=== PATIENT | female | born 1985 | race Caucasian/White ===

== ENCOUNTER 2016-09-16 00:27 | Emergency (ER) | payer MEDICARE, MEDICAID ==
[2016-09-16 00:42] VITALS: BP 142/103
[2016-09-16] MEDS ORDERED: Famotidine 20 MG/2 ML SDV IVPUSH ONE (01:11)
[2016-09-16] MEDS ORDERED: Sodium Chloride 0.9% 10 ML Syringe FLUSH PRN (01:11)
[2016-09-16] MEDS ORDERED: Ondansetron 4 MG/2 ML SDV IVPUSH ONE (01:11)
[2016-09-16] MEDS ORDERED: HYDROmorphone 0.5 MG/0.5 ML Syringe IVPUSH ONE (01:11)
--- NOTE | 2016-09-16 02:21 | EDM.PDOC ---
ED HPI GENERAL MEDICAL PROBLEM - General Chief Complaint: Abdominal Pain Stated Complaint: ABDOMINAL PAIN Time Seen by Provider: 09/16/16 00:48 Source of Information: Reports: Patient, RN Notes Reviewed - History of Present Illness INITIAL COMMENTS - FREE TEXT/NARRATIVE: 31-year-old female comes in with lower abdominal discomfort. This just started a few hours ago. She also does have some nausea. She has not vomited. No diarrhea. No fever or chills. She does have history of previous appendectomy. No vaginal bleeding or spotting. She states that his "no way I. can be because I do not have a boyfriend" Lower Abdomen Pain Score (Numeric/FACES): 10 - Related Data Allergies Allergy/AdvReac Type Severity Reaction Status Date / Time codeine Allergy Cannot Verified 02/22/16 22:39 Remember leuprolide acetate Allergy Hives Verified 02/22/16 22:39 [From Lupron] Home Meds: Home Meds Levothyroxine [Synthroid] 50 mcg PO DAILY 10/16/14 [History] Meloxicam [Meloxicam] 15 mg PO DAILY 09/16/16 [History] Nitrofurantoin Monohyd/M-Cryst [Macrobid 100 mg Capsule] 100 mg PO BID #10 capsule 09/16/16 [Rx] atorvaSTATin [Lipitor] 10 mg PO DAILY 09/16/16 [History] Past Medical History HEENT History: Reports: Other (See Below) Other HEENT History: wears glasses, blind in left eye 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) Other OB/BYN History: pt doesn't menstrate so she takes prometrium to get rid of the waste in her uterus Musculoskeletal History: Reports: Back Pain, Chronic Neurological History: Reports: Other (See Below) Other Neuro History: neurofibrotosis type 1 Endocrine/Metabolic History: Reports: Hypothyroidism - Infectious Disease History Infectious Disease History: Reports: Chicken Pox - Past Surgical History HEENT Surgical History: Reports: Other (See Below) Other HEENT Surgeries/Procedures: aucoustic nerve radiation d/t tumor GI Surgical History: Reports: Appendectomy Endocrine Surgical History: Reports: None Other Neurological Surgeries/Procedures: NeuroFibroMytosis Type 1 Social & Family History - Family History Family Medical History: Noncontributory - Tobacco Use Smoking Status *Q: Never Smoker Second Hand Smoke Exposure: No - Caffeine Use Caffeine Use: Reports: Soda Other Caffeine Use: a few can a day - Alcohol Use Days Per Week of Alcohol Use: 0 - Recreational Drug Use Recreational Drug Use: No - Living Situation & Occupation Living situation: Reports: Single Occupation: Employed ED ROS GENERAL - Review of Systems Review Of Systems: See Below Constitutional: Denies: Fever, Chills HEENT: Denies: Throat Pain Respiratory: Denies: Shortness of Breath Cardiovascular: Denies: Chest Pain GI/Abdominal: Reports: Abdominal Pain (Lower abdominal and pelvic), Nausea. Denies: Vomiting : Reports: No Symptoms Musculoskeletal: Reports: Back Pain (Mild) Skin: Reports: No Symptoms Neurological: Reports: No Symptoms ED EXAM, GI/ABD - Physical Exam Exam: See Below General Appearance: Alert, No Apparent Distress, Mild Distress Throat/Mouth: Normal Inspection, Normal Oropharynx Head: Atraumatic Neck: Supple, Full Range of Motion Respiratory/Chest: No Respiratory Distress, Lungs Clear, Normal Breath Sounds Cardiovascular: Regular Rate, Rhythm GI/Abdominal: Soft, Tenderness (Very mild tenderness lower mid abdomen). No: Guarding, Rebound Back Exam: No: CVA Tenderness (L), CVA Tenderness (R) Extremities: Normal Inspection, Normal Range of Motion Neurological: Alert, No Motor/Sensory Deficits Skin Exam: Warm, Dry, Normal Color Course - Vital Signs Last Recorded V/S: Last Vital Signs Temp 97.8 F 09/16/16 00:38 Pulse 55 L 09/16/16 00:38 Resp 16 09/16/16 00:38 BP 142/103 H 09/16/16 00:38 Pulse Ox 100 09/16/16 00:38 - Orders/Labs/Meds Orders: Active Orders 24 hr Category Date Time Status Peripheral IV Care [RC] . DIRECTED Care 09/16/16 01:12 Active Sodium Chloride 0.9% [Normal Saline] 1,000 ml Med 09/16/16 02:30 Ordered IV ONETIME Sodium Chloride 0.9% [Saline Flush] Med 09/16/16 01:11 Active 10 ml FLUSH ASDIRECTED PRN Peripheral IV Insertion Adult [OM.PC] Stat Oth 09/16/16 01:11 Ordered Medication Orders Sodium Chloride (Normal Saline) 1,000 mls @ 999 mls/hr IV ONETIME YULI Sodium Chloride (Saline Flush) 10 ml FLUSH ASDIRECTED PRN PRN Reason: Keep Vein Open Last Admin: 09/16/16 01:33 Dose: 10 ml Labs: Laboratory Tests 09/16/16 09/16/16 09/16/16 Range/Units 01:20 01:35 01:35 WBC 9.60 (3.98-10.04) K/mm3 RBC 4.84 (3.98-5.22) M/mm3 Hgb 13.7 (11.2-15.7) gm/L Hct 38.4 (34.1-44.9) % MCV 79.3 L (79.4-94.8) fl MCH 28.3 (25.6-32.2) pg MCHC 35.7 H (32.2-35.5) g/dl RDW Std Deviation 36.1 L (36.4-46.3) fL Plt Count 337 (182-369) K/mm3 MPV 9.3 L (9.4-12.3) fl Neut % (Auto) 53.5 (34.0-71.1) % Lymph % (Auto) 35.2 (19.3-51.7) % [place] % (Auto) 7.9 (4.7-12.5) % Eos % (Auto) 2.1 (0.7-5.8) Baso % (Auto) 0.9 (0.1-1.2) % Neut # (Auto) 5.13 (1.56-6.13) K/mm3 Lymph # (Auto) 3.38 (1.18-3.74) K/mm3 [place] # (Auto) 0.76 H (0.24-0.36) K/mm3 Eos # (Auto) 0.20 (0.04-0.36) K/mm3 Baso # (Auto) 0.09 H (0.01-0.08) K/mm3 Manual Slide Review Normal smear Sodium 139 (136-145) mEq/L Potassium 3.5 (3.5-5.1) mEq/L Chloride 106 (98-107) mEq/L Carbon Dioxide 20 L (21-32) mEq/L Anion Gap 16.5 H (5-15) BUN 16 (7-18) mg/dL Creatinine 0.8 (0.55-1.02) mg/dL Est Cr Clr Drug Dosing 72.52 mL/min Estimated GFR (MDRD) > 60 (>60) mL/min BUN/Creatinine Ratio 20.0 H (14-18) Glucose 94 (74-106) mg/dL Calcium 9.3 (8.5-10.1) mg/dL Total Bilirubin 0.3 (0.2-1.0) mg/dL AST 12 L (15-37) U/L ALT 15 (14-59) U/L Alkaline Phosphatase 111 (46-116) U/L Total Protein 7.3 (6.4-8.2) g/dl Albumin 4.1 (3.4-5.0) g/dl Globulin 3.2 gm/dL Albumin/Globulin Ratio 1.3 (1-2) Urine Color Yellow (Yellow) Urine Appearance Clear (Clear) Urine pH 7.5 (5.0-8.0) Ur Specific [place] 1.020 (1.005-1.030) Urine Protein 1+ H (Negative) Urine Glucose (UA) Negative (Negative) Urine Ketones Negative (Negative) Urine Occult Blood Negative (Negative) Urine Nitrite Negative (Negative) Urine Bilirubin Negative (Negative) Urine Urobilinogen 1.0 (0.2-1.0) Ur Leukocyte Esterase 1+ H (Negative) Urine RBC Not seen (0-5) /hpf Urine WBC 5-10 H (0-5) /hpf Ur Epithelial Cells 0-5 (0-5) /hpf Urine Bacteria Few (FEW) /hpf Urine Mucus Few (FEW) /hpf Meds: Medications Generic Name Dose Route Start Last Admin Trade Name Freq PRN Reason Stop Dose Admin Sodium Chloride 1,000 mls @ 999 mls/hr 09/16/16 02:30 Normal Saline IV ONETIME YULI Sodium Chloride 10 ml 09/16/16 01:11 09/16/16 01:33 Saline Flush FLUSH 10 ml ASDIRECTED PRN Administration Keep Vein Open Discontinued Medications Generic Name Dose Route Start Last Admin Trade Name Freq PRN Reason Stop Dose Admin Famotidine 20 mg 09/16/16 01:11 09/16/16 01:31 Pepcid IVPUSH 09/16/16 01:12 20 mg ONETIME ONE Administration Hydromorphone HCl 0.5 mg 09/16/16 01:11 09/16/16 01:33 Dilaudid IVPUSH 09/16/16 01:12 0.5 mg ONETIME ONE Administration Nitrofurantoin Macrocrystals 100 mg 09/16/16 02:24 Macrobid PO 09/16/16 02:25 ONETIME ONE Ondansetron HCl 4 mg 09/16/16 01:11 09/16/16 01:30 Zofran IVPUSH 09/16/16 01:12 4 mg ONETIME ONE Administration - Re-Assessments/Exams Free Text/Narrative Re-Assessment/Exam: 09/16/16 02:28. UA does show signs for UTI. WBC normal. Feels much better after Zofran 4 mg IV, Pepcid 20 mg IV and Dilaudid 0.5 mg IV. Labs do show that she is somewhat dehydrated so we'll give 1 L of fluid prior to discharge. Will start on Macrobid 100 mg twice a day. Departure - Departure Time of Disposition: 15:30 Disposition: Home, Self-Care 01 Condition: fair Clinical Impression: Abdominal pain Qualifiers: Abdominal location: lower abdomen, unspecified Qualified Code(s): R10.30 - Lower abdominal pain, unspecified UTI (urinary tract infection) Qualifiers: Urinary tract infection type: acute cystitis Hematuria presence: without hematuria Qualified Code(s): N30.00 - Acute cystitis without hematuria - Discharge Information Prescriptions: Nitrofurantoin Monohyd/M-Cryst [Macrobid 100 mg Capsule] 100 mg PO BID #10 capsule Forms: ED Department Discharge Additional Instructions: Drink plenty of water, drink plenty of fluids to maintain hydration. Macrobid antibiotic twice daily for the next 5 days or until gone, followup clinic if not much better within one to 2 days as expected, return to ED if symptoms worsening in any way - My Orders Last 24 Hours: My Active Orders 09/16/16 01:11 Sodium Chloride 0.9% [Saline Flush] 10 ml FLUSH ASDIRECTED PRN Peripheral IV Insertion Adult [OM.PC] Stat 09/16/16 01:12 Peripheral IV Care [RC] . DIRECTED 09/16/16 02:30 Sodium Chloride 0.9% [Normal Saline] 1,000 ml IV ONETIME - Assessment/Plan Last 24 Hours: My Active Orders 09/16/16 01:11 Sodium Chloride 0.9% [Saline Flush] 10 ml FLUSH ASDIRECTED PRN Peripheral IV Insertion Adult [OM.PC] Stat 09/16/16 01:12 Peripheral IV Care [RC] . DIRECTED 09/16/16 02:30 Sodium Chloride 0.9% [Normal Saline] 1,000 ml IV ONETIME
[2016-09-16] MEDS ORDERED: Nitrofurantoin Monohydrate/Macrocrystalline 100 MG Cap PO ONE (02:24)
[2016-09-16] MEDS ORDERED: Sodium Chloride 0.9% 1,000 ML IV SCH (02:30)
== END 2016-09-16 04:00 | disposition home or self-care (01) ==
LOC: JD.ED 00:27
DX: N30.00 Acute cystitis without hematuria (principal); E03.9 Hypothyroidism, unspecified; Z90.49 Acquired absence of other specified parts of digestive tract; Z98.890 Other specified postprocedural states; Z79.899 Other long term (current) drug therapy; Z88.5 Allergy status to narcotic agent; Z88.8 Allergy status to other drugs, medicaments and biological substances
CPT/HCPCS: 36415; 80053; 81001; 85025; 96361; 96374; 96375; 99284; A9270; J1170; J2405; J7040; J7050

== ENCOUNTER 2016-10-05 21:37 | Emergency (ER) | payer MEDICARE, MEDICAID ==
[2016-10-05 21:53] VITALS: BP 129/79
--- NOTE | 2016-10-05 23:11 | EDM.PDOC ---
ED HPI GENERAL MEDICAL PROBLEM - General Chief Complaint: Lower Extremity Injury/Pain Stated Complaint: Lower extremity edema Time Seen by Provider: 10/05/16 22:05 Source of Information: Reports: Patient, RN Notes Reviewed History Limitations: Reports: No Limitations - History of Present Illness INITIAL COMMENTS - FREE TEXT/NARRATIVE: 31 year old female presents to the ED with lower extremity edema, worse on the right side. She says she normally has swelling after work but today is much worse than normal. The swelling is worse on the right side. She has calf pain on the right side that is worse with dorsiflexion of the foot. She works at [employer] and is on her feet for 4-6 hours at a time. 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 She denies chest pain or shortness of breath. No history of blood clots or clotting disorders. No recent travel. She is not on any control or hormonal replacement medications. No fever or chills. 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 (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) Other OB/BYN History: pt doesn't menstrate so she takes prometrium to get rid of the waste in her uterus Musculoskeletal History: Reports: Back Pain, Chronic Neurological History: Reports: Other (See Below) Other Neuro History: neurofibrotosis type 1 Endocrine/Metabolic History: Reports: Hypothyroidism - Infectious Disease History Infectious Disease History: Reports: Chicken Pox - Past Surgical History HEENT Surgical History: Reports: Other (See Below) Other 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 GI Surgical History: Reports: Appendectomy Endocrine Surgical History: Reports: None Other Neurological Surgeries/Procedures: NeuroFibroMytosis Type 1 Social & Family History - Family History Family Medical History: Noncontributory - Tobacco Use Smoking Status *Q: Never Smoker Second Hand Smoke Exposure: No - Caffeine Use Caffeine Use: Reports: Soda Other Caffeine Use: a few can a day - Alcohol Use Days Per Week of Alcohol Use: 0 - Recreational Drug Use Recreational Drug Use: No - Living Situation & Occupation Living situation: Reports: Single Occupation: Employed Review of Systems - Review of Systems Review Of Systems: See Below Constitutional: Reports: No Symptoms. Denies: Chills, Fever Respiratory: Reports: No Symptoms. Denies: Shortness of Breath, Pleuritic Chest Pain, Cough Cardiovascular: Reports: Edema. Denies: Chest Pain Musculoskeletal: Reports: Leg Pain Skin: Reports: No Symptoms. Denies: Erythema ED EXAM, GENERAL - Physical Exam Exam: See Below Exam Limited By: No Limitations General Appearance: Alert, WD/WN, No Apparent Distress Respiratory/Chest: No Respiratory Distress, Lungs Clear, Normal Breath Sounds Cardiovascular: Normal Peripheral Pulses, Regular Rate, Rhythm, Other (non- pitting edema to bilateral lower extremities. ) Peripheral Pulses: 2+: Posterior Tibial (L), Posterior Tibial (R), Dorsalis Pedis (L), Dorsalis Pedis (R) Extremities: Normal Inspection, Normal Range of Motion, Normal Capillary Refill , Juan Daniel's Sign (right ), Leg Pain. No: Joint Swelling, Increased Warmth, Pallor , Redness Neurological: Alert, Normal Cognition Skin Exam: Warm, Dry, Intact Course - Vital Signs Last Recorded V/S: Last Vital Signs Temp 97.5 F 10/05/16 21:43 Pulse 64 10/05/16 21:43 Resp 16 10/05/16 21:43 BP 129/79 10/05/16 21:43 Pulse Ox 99 10/05/16 21:43 - Orders/Labs/Meds Labs: Laboratory Tests 10/05/16 10/05/16 10/05/16 Range/Units 22:35 22:35 22:35 WBC 9.28 (3.98-10.04) K/mm3 RBC 4.82 (3.98-5.22) M/mm3 Hgb 13.5 (11.2-15.7) gm/L Hct 39.4 (34.1-44.9) % MCV 81.7 (79.4-94.8) fl MCH 28.0 (25.6-32.2) pg MCHC 34.3 (32.2-35.5) g/dl RDW Std Deviation 37.9 (36.4-46.3) fL Plt Count 323 (182-369) K/mm3 MPV 9.0 L (9.4-12.3) fl Neut % (Auto) 53.3 (34.0-71.1) % Lymph % (Auto) 35.1 (19.3-51.7) % [place] % (Auto) 8.3 (4.7-12.5) % Eos % (Auto) 2.0 (0.7-5.8) Baso % (Auto) 1.0 (0.1-1.2) % Neut # (Auto) 4.94 (1.56-6.13) K/mm3 Lymph # (Auto) 3.26 (1.18-3.74) K/mm3 [place] # (Auto) 0.77 H (0.24-0.36) K/mm3 Eos # (Auto) 0.19 (0.04-0.36) K/mm3 Baso # (Auto) 0.09 H (0.01-0.08) K/mm3 D-Dimer, Quantitative < 0.19 L (0.19-0.59) mg/L Sodium 140 (136-145) mEq/L Potassium 3.6 (3.5-5.1) mEq/L Chloride 105 (98-107) mEq/L Carbon Dioxide 24 (21-32) mEq/L Anion Gap 14.6 (5-15) BUN 14 (7-18) mg/dL Creatinine 0.8 (0.55-1.02) mg/dL Est Cr Clr Drug Dosing TNP Estimated GFR (MDRD) > 60 (>60) mL/min BUN/Creatinine Ratio 17.5 (14-18) Glucose 95 (74-106) mg/dL Calcium 8.8 (8.5-10.1) mg/dL Total Bilirubin 0.3 (0.2-1.0) mg/dL AST 26 (15-37) U/L ALT 45 (14-59) U/L Alkaline Phosphatase 132 H (46-116) U/L Total Protein 7.2 (6.4-8.2) g/dl Albumin 3.7 (3.4-5.0) g/dl Globulin 3.5 gm/dL Albumin/Globulin Ratio 1.1 (1-2) - Re-Assessments/Exams Free Text/Narrative Re-Assessment/Exam: CBC and CMP are normal. D-dimer is WNL ruling out blood clots. Patient will be discharged home. Instructed to f/u with her PCP. Departure - Departure Time of Disposition: 23:10 Disposition: Home, Self-Care 01 Condition: good Clinical Impression: Lower extremity edema - Discharge Information Instructions: Edema Referrals: Natalee Sweet NP [Primary Care Provider] - Forms: ED Department Discharge Additional Instructions: Rest and elevate your legs above your heart Drink plenty of water, 60-80 oz is recommended Follow-up with your primary care provider in 1-2 weeks for recheck
== END 2016-10-05 23:20 | disposition home or self-care (01) ==
LOC: JD.ED 21:37
DX: R60.0 Localized edema (principal); E03.9 Hypothyroidism, unspecified; Z90.49 Acquired absence of other specified parts of digestive tract; Z98.890 Other specified postprocedural states; Z79.899 Other long term (current) drug therapy; Z88.5 Allergy status to narcotic agent; Z88.8 Allergy status to other drugs, medicaments and biological substances
CPT/HCPCS: 36415; 80053; 85025; 85379; 99282; 99284

== ENCOUNTER 2016-12-07 19:01 | Emergency (ER) | payer MEDICARE, MEDICAID ==
[2016-12-07 19:08] VITALS: BP 125/73
[2016-12-07] MEDS ORDERED: Cyclobenzaprine 10 MG Tab PO ONE (19:22)
[2016-12-07] MEDS ORDERED: Acetaminophen 325 MG Tab PO ONE (19:22)
[2016-12-07] MEDS ORDERED: Ondansetron 4 MG Tab.DIS PO ONE (19:22)
--- NOTE | 2016-12-07 19:25 | EDM.PDOC ---
ED HPI GENERAL MEDICAL PROBLEM - General Chief Complaint: Back Pain or Injury Stated Complaint: [facility] Time Seen by Provider: 12/07/16 19:11 Source of Information: Reports: Patient History Limitations: Reports: No Limitations - History of Present Illness INITIAL COMMENTS - FREE TEXT/NARRATIVE: 31 y/o F with hx neurofibromatosis, chronic back pain/spasms, presents with back pain and nausea. She reports that she just returned home from visiting her dad in [place] and she is very very sad because she misses the dog that lives there. She hasn't been able to eat much this afternoon due to nausea, no vomiting, though she requests to eat during our conversation. Mild diffuse abd discomfort, dull. No diarrhea. Normal BM's no fever. She also has worsening low back pain. No injury or fall. Normally takes meloxicam for this, but hasn't taken any in a few days. Hasn't taken anything for the back pain. Pain is moderate. Difficulty walking this afternoon due to pain. Pain was ok this morning then suddenly got worse about an hour ago. No incontinence. No sensory changes. Called EMS for help. No fever/recent illness/cough/CP. Patient lives alone and usually walks without assistance. Back Pain Score (Numeric/FACES): 10 Abdominal Pain Score (Numeric/FACES): 10 - Related Data Allergies Allergy/AdvReac Type Severity Reaction Status Date / Time codeine Allergy Cannot Verified 10/05/16 21:53 Remember leuprolide acetate Allergy Hives Verified 10/05/16 21:53 [From Lupron] Home Meds: Home Meds Levothyroxine [Synthroid] 50 mcg PO DAILY 10/16/14 [History] Meloxicam [Meloxicam] 15 mg PO DAILY 09/16/16 [History] atorvaSTATin [Lipitor] 10 mg PO DAILY 09/16/16 [History] Past Medical History HEENT History: Reports: Impaired Vision, Other (See Below) Other HEENT History: blind in left eye 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) Other OB/BYN History: pt doesn't menstrate so she takes prometrium to get rid of the waste in her uterus Musculoskeletal History: Reports: Back Pain, Chronic Neurological History: Reports: Other (See Below) Other Neuro History: neurofibrotosis type 1 Endocrine/Metabolic History: Reports: Hypothyroidism - Infectious Disease History Infectious Disease History: Reports: Chicken Pox - Past Surgical History HEENT Surgical History: Reports: Other (See Below) Other 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 GI Surgical History: Reports: Appendectomy Endocrine Surgical History: Reports: None Other Neurological Surgeries/Procedures: NeuroFibroMytosis Type 1 Social & Family History - Family History Family Medical History: Noncontributory - Tobacco Use Smoking Status *Q: Never Smoker Second Hand Smoke Exposure: No - Caffeine Use Caffeine Use: Reports: Soda Other Caffeine Use: a few can a day - Alcohol Use Days Per Week of Alcohol Use: 0 - Recreational Drug Use Recreational Drug Use: No - Living Situation & Occupation Living situation: Reports: Single Occupation: Employed ED ROS GENERAL - Review of Systems Review Of Systems: See Below Constitutional: Denies: Fever HEENT: Reports: No Symptoms Respiratory: Denies: Shortness of Breath, Cough Cardiovascular: Denies: Chest Pain Endocrine: Reports: No Symptoms GI/Abdominal: Reports: Abdominal Pain, Nausea : Reports: No Symptoms Musculoskeletal: Reports: Back Pain Skin: Reports: No Symptoms Psychiatric: Reports: Anxiety ED EXAM,LOWER BACK PAIN/INJURY - Physical Exam Exam: See Below Exam Limited By: No Limitations General Appearance: Alert, WD/WN, No Apparent Distress Eye Exam: Bilateral Eye: Normal Inspection Ears: Normal External Exam Nose: Normal Inspection Throat/Mouth: Normal Inspection, Normal Voice, No Airway Compromise Head: Atraumatic, Normocephalic Neck: Normal Inspection, Supple, Non-Tender, Full Range of Motion Respiratory/Chest: No Respiratory Distress, Lungs Clear, Normal Breath Sounds Cardiovascular: Normal Peripheral Pulses, Regular Rate, Rhythm, No Murmur GI/Abdominal: Soft, Non-Tender, No Distention. No: Rebound Back Exam: Normal Inspection, Vertebral Tenderness (mid L spine, no step-offs/ deformities, mild L paraspinal TTP, skin normal, no fluctuance). No: CVA Tenderness (L), CVA Tenderness (R) Extremities: Other (mild bilat lower extremity edema, no calf TTP) Neurological: Alert, Normal Mood/Affect, Normal Plantar Flexion, No Motor/ Sensory Deficits, Oriented x 3 Psychiatric: Anxious Skin Exam: Warm, Intact, Normal Color, No Rash Course - Vital Signs Last Recorded V/S: Last Vital Signs Temp 37.0 C 12/07/16 19:03 Pulse 62 08/06/17 19:03 Resp 16 12/07/16 19:03 BP 125/73 12/07/16 19:03 Pulse Ox 100 12/07/16 19:03 - Orders/Labs/Meds Orders: Active Orders 24 hr Category Date Time Status Lumbar Spine 2 or 3V [CR] Stat Exams 12/07/16 19:21 Taken Meds: Medications Discontinued Medications Generic Name Dose Route Start Last Admin Trade Name Neymar PRN Reason Stop Dose Admin Acetaminophen 650 mg 12/07/16 19:22 12/07/16 19:37 Tylenol PO 12/07/16 19:23 650 mg NOW ONE Administration Cyclobenzaprine HCl 10 mg 12/07/16 19:22 12/07/16 19:37 Flexeril PO 12/07/16 19:23 10 mg ONETIME ONE Administration Ondansetron HCl 8 mg 12/07/16 19:22 12/07/16 19:37 Zofran Odt PO 12/07/16 19:23 8 mg ONETIME ONE Administration - Re-Assessments/Exams Free Text/Narrative Re-Assessment/Exam: 12/07/16 19:50 Abdominal exam benign, patient requesting to eat. She is very sad about leaving her dog friend in [place]. She appears quite comfortable - she cried when telling me about the dog then was consoled and was happily telling me stories and appeared to be fine. Her mental abilities are quite simple. She seems to be acutely lonely - she lives alone and just returned from visiting family. Flexeril and APAP ordered for her back pain. XR ordered due to hx neurofibromatosis. Will allow her to eat after zofran and reassess. 12/07/16 20:15 Lumbar x-rays show no bony abnormality. Patient is feeling much better and would like to eat and go home. Reassured patient, discussed return precautions. Departure - Departure Time of Disposition: 20:16 Disposition: Home, Self-Care 01 Clinical Impression: Nausea Back pain Qualifiers: Back pain location: low back pain Chronicity: acute Back pain laterality: midline Sciatica presence: without sciatica Qualified Code(s): M54.5 - Low back pain - Discharge Information Forms: ED Department Discharge Additional Instructions: 1. Take your usual medications for back pain 2. Follow up with your regular doctor this week for further care 3. Return to the Emergency Department if you have severe pain, difficulty walking, fever, or other concerning symptoms - My Orders Last 24 Hours: My Active Orders 12/07/16 19:21 Lumbar Spine 2 or 3V [CR] Stat - Assessment/Plan Last 24 Hours: My Active Orders 12/07/16 19:21 Lumbar Spine 2 or 3V [CR] Stat
--- NOTE | 2016-12-08 08:38 | CR ---
Lumbar spine: AP, lateral and coned-down lateral views centered to the lumbosacral junction were obtained. Comparison: Previous lumbar spine study of 10/29/13. Vertebral body heights and disc spaces are maintained. Minimal scoliosis is seen. Sacroiliac joints are within normal limits. Pedicles as well as visualized transverse and spinous processes are intact. No subluxation or fracture is seen. Impression: 1. Slight scoliosis. 2. No additional abnormality is identified on three-view lumbar spine study. No significant change is seen from prior exam. Diagnostic code #2
== END 2016-12-07 20:22 | disposition home or self-care (01) ==
LOC: JD.ED 19:01
DX: M54.5 Low back pain (principal); R11.0 Nausea; E03.9 Hypothyroidism, unspecified; Z88.5 Allergy status to narcotic agent; Z88.8 Allergy status to other drugs, medicaments and biological substances; Z79.899 Other long term (current) drug therapy; Z90.49 Acquired absence of other specified parts of digestive tract
CPT/HCPCS: 72100; 99284; A9270; 99283

== ENCOUNTER 2017-01-29 18:56 | Emergency (ER) | payer MEDICARE, MEDICAID ==
[2017-01-29 19:09] VITALS: BP 137/90
--- NOTE | 2017-01-29 19:17 | EDM.PDOC ---
ED HPI GENERAL MEDICAL PROBLEM - General Chief Complaint: Back Pain or Injury Stated Complaint: LOWER BACK PAIN Time Seen by Provider: 01/29/17 19:10 Source of Information: Reports: Patient History Limitations: Reports: No Limitations - History of Present Illness INITIAL COMMENTS - FREE TEXT/NARRATIVE: 31-year-old female arrives in the ED with acute onset of diffuse low back pain radiating to the posterior lateral thighs and SI joint areas. No true radicular pain. No problems with her for ability to void or defecate. History of recurrent low back pain. 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 No specific injuries have been identified. Previous x-rays revealed a mild scoliosis of the lumbar spine but no congenital abnormalities or spondylolisthesis listhesis. They were done in 2013. On examination she has facet joint spasm and pain L4-L5 bilaterally. Both SI joints were very painful to palpation superior aspect. Benign abdominal examination no evidence of urinary tract infection afebrile. Onset: Today Onset Date: 01/29/17 Onset Time: 05:30 Duration: Hour(s): Location: Reports: Back (Low back.) Quality: Reports: Ache, Pressure Severity: Severe (Current rates her pain as 10 out of 10.) Improves with: Reports: Rest Worsens with: Reports: Other (Standing), Movement (Pain nevus present at rest periods worse with movement no) Context: Reports: Other (No known injuries. 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 Therefore there is a lot of twisting and turning activities.). Denies: Activity, Exercise, Lifting, Sick Contact, Trauma Associated Symptoms: Reports: No Other Symptoms Treatments EXPORT MANAGER: Reports: Other (see below) (None.) bilateral lower back Pain Score (Numeric/FACES): 10 - Related Data Allergies Allergy/AdvReac Type Severity Reaction Status Date / Time acetaminophen Allergy Other Verified 01/29/17 19:10 [From Tylenol-Codeine] leuprolide acetate Allergy Hives Verified 01/29/17 19:10 [From Lupron] codeine AdvReac Other Verified 01/29/17 19:10 Home Meds: Home Meds Levothyroxine [Synthroid] 50 mcg PO DAILY 10/16/14 [History] Meloxicam [Meloxicam] 15 mg PO DAILY 09/16/16 [History] Diclofenac Sodium [Voltaren] 50 mg PO TIDMEALS #24 tab.ec 01/29/17 [Rx] predniSONE [Deltasone] 20 mg PO ASDIRECTED #15 tablet 01/29/17 [Rx] traMADol [Ultram] 50 mg PO Q6H #24 tablet 01/29/17 [Rx] traMADol [Ultram] 50 mg PO Q6H #4 tablet 01/29/17 [Rx] Past Medical History HEENT History: Reports: Impaired Vision, Other (See Below) Other HEENT History: blind in left eye 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: Reports: Other (See Below) Other OB/BYN History: pt doesn't menstrate so she takes prometrium to get rid of the waste in her uterus Musculoskeletal History: Reports: Back Pain, Chronic Neurological History: Reports: Other (See Below) Other Neuro History: neurofibrotosis type 1 Endocrine/Metabolic History: Reports: Hypothyroidism - Infectious Disease History Infectious Disease History: Reports: Chicken Pox - Past Surgical History HEENT Surgical History: Reports: Other (See Below) Other 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 GI Surgical History: Reports: Appendectomy Endocrine Surgical History: Reports: None Other Neurological Surgeries/Procedures: NeuroFibroMytosis Type 1 Social & Family History - Family History Family Medical History: Noncontributory - Tobacco Use Smoking Status *Q: Never Smoker Second Hand Smoke Exposure: No - Caffeine Use Caffeine Use: Reports: Soda Other Caffeine Use: a few can a day - Alcohol Use Days Per Week of Alcohol Use: 0 - Recreational Drug Use Recreational Drug Use: No - Living Situation & Occupation Living situation: Reports: Single Occupation: Employed ED ROS GENERAL - Review of Systems Review Of Systems: See Below Constitutional: Denies: Fever, Chills, Malaise, Weakness, Fatigue, Decreased Appetite, Weight Loss HEENT: Reports: No Symptoms Respiratory: Reports: No Symptoms Cardiovascular: Reports: No Symptoms Endocrine: Reports: No Symptoms GI/Abdominal: Reports: No Symptoms : Reports: No Symptoms Musculoskeletal: Reports: Back Pain Skin: Reports: No Symptoms (See history of present illness) Neurological: Reports: Difficulty Walking Psychiatric: Reports: No Symptoms (Walks stooped over due to low back pain) Hematologic/Lymphatic: Reports: No Symptoms Immunologic: Reports: No Symptoms ED EXAM,LOWER BACK PAIN/INJURY - Physical Exam Exam: See Below Exam Limited By: No Limitations General Appearance: Alert, WD/WN, Moderate Distress Respiratory/Chest: No Respiratory Distress, Lungs Clear, Normal Breath Sounds, No Accessory Muscle Use, Chest Non-Tender Cardiovascular: Normal Peripheral Pulses, Regular Rate, Rhythm, No Edema, No Gallop, No Murmur GI/Abdominal: Normal Bowel Sounds, Soft, Non-Tender, No Organomegaly, No Abnormal Bruit, No Mass, Pelvis Stable Back Exam: Decreased Range of Motion, Paraspinal Tenderness (Particularly over L4-L5 L4-5 S1 facet joints bilaterally.), Other (Both superior aspect of the SI joints are very painful to touch.). No: Full Range of Motion, CVA Tenderness (L ), CVA Tenderness (R) Extremities: Normal Inspection, Normal Range of Motion, Non-Tender, No Pedal Edema Neurological: Normal Mood/Affect, Normal Dorsiflexion, CN II-XII Intact, Oriented x 3. No: Normal Gait DTR - Lower Extremities: 1+: Ankle (R), Ankle (L), 2+: Knee (R), Knee (L) Psychiatric: Normal Affect, Anxious Skin Exam: Warm, Normal Color, No Rash Course - Vital Signs Last Recorded V/S: Last Vital Signs Temp 36.3 C 01/29/17 19:03 Pulse 78 01/29/17 19:03 Resp 18 01/29/17 19:03 BP 137/90 01/29/17 19:03 Pulse Ox 100 01/29/17 19:03 - Orders/Labs/Meds Labs: Laboratory Tests 01/29/17 Range/Units 19:10 Urine Color Light yellow (Yellow) Urine Appearance Clear (Clear) Urine pH 6.5 (5.0-8.0) Ur Specific [place] 1.010 (1.005-1.030) Urine Protein Negative (Negative) Urine Glucose (UA) Negative (Negative) Urine Ketones Negative (Negative) Urine Occult Blood Negative (Negative) Urine Nitrite Negative (Negative) Urine Bilirubin Negative (Negative) Urine Urobilinogen 0.2 (0.2-1.0) Ur Leukocyte Esterase 1+ H (Negative) Urine RBC 0-5 (0-5) /hpf Urine WBC 5-10 H (0-5) /hpf Ur Epithelial Cells 0-5 (0-5) /hpf Urine Bacteria Few (FEW) /hpf Urine Mucus Not seen (FEW) /hpf Meds: Medications Discontinued Medications Generic Name Dose Route Start Last Admin Trade Name Neymar PRN Reason Stop Dose Admin Ibuprofen 600 mg 01/29/17 19:23 01/29/17 19:49 Motrin PO 01/29/17 19:24 600 mg ONETIME ONE Administration Prednisone 20 mg 01/29/17 19:24 01/29/17 19:48 Prednisone PO 01/29/17 19:25 20 mg ONETIME ONE Administration Tramadol HCl Confirm 01/29/17 19:47 01/29/17 20:01 Ultram Administered 01/29/17 19:48 Not Given Dose 200 mg .ROUTE .STK-MED ONE - Radiology Interpretation Free Text/Narrative:: 31-year-old female presents the ED with acute onset of bilateral low back pain. No specific injuries occurred in the workplace a day. 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 Has a positive low back pain the past. Examination reveals bilateral L4 -L5 L5-S1 facet joint tenderness as well as superior aspect of SI joints bilaterally. No evidence of any urinary tract infection. Benign abdominal exam. I did review an x-ray that was done in 2013 on her back showing some scoliosis of the lumbar spine but no spondylosis listhesis or other abnormalities at that time. Plan patient has limited finances. She is unable to purchase medications other than through [facility]. She does only has 5 daughters and her debit card and is therefore is not able to use the Outline machine. Plan tramadol 50 mg every 6 hours 4 tablets were provided through the ED. Given Motrin 600 mg by mouth in the ED with prednisone 20 mg by mouth once. She'll start 20 mg prednisone twice a day for 5 days tomorrow and then once in the morning for another 5 days after that. She'll use Voltaren 50 mg 3 times daily for the next 8 days to reduce pain and inflammation. Tramadol 50 mg every 6 hours when necessary for pain relief. Note given to get her off out of the work place for the next 4 days. Departure - Departure Time of Disposition: 19:17 Disposition: Home, Self-Care 01 Condition: Fair Clinical Impression: Bilateral sacroiliitis Acute lumbar myofascial strain Qualifiers: Encounter type: initial encounter Qualified Code(s): S39.012A - Strain of muscle, fascia and tendon of lower back, initial encounter - Discharge Information Prescriptions: Diclofenac Sodium [Voltaren] 50 mg PO TIDMEALS #24 tab.ec predniSONE [Deltasone] 20 mg PO ASDIRECTED #15 tablet traMADol [Ultram] 50 mg PO Q6H #24 tablet traMADol [Ultram] 50 mg PO Q6H #4 tablet Instructions: Lumbosacral Strain Referrals: Natalee Sweet DRAFTER [employer] [Primary Care Provider] - Forms: ED Department Discharge, ED Return to Work/School Form Additional Instructions: Evaluation the emergency room today in regards to sudden onset of acute low bilateral low back pain. Heaviness in the legs appreciated. No problems voiding or defecating. Gait disorder due to back pain causing to stoop and walk very slow. No known injuries. Examination reveals marked inflammation over the L4-L5 facet joints bilaterally and appeared through particularly the upper half of the SI joints bilaterally.. We call the sacroiliitis. His usually refers pain into the hips and down the back sides of legs. As is usually repetitive twisting activity over the last few days. Treatment is therefore time to heal. May apply ice to the low back today for one half hour out of every 4 hours to relieve pain and inflammation. May use heat in 2 days time. Activity as tolerated. May use tramadol 50 mg every 6 hours for pain relief. Given a dose of Motrin 600 mg in the ED. The prescription for Voltaren tomorrow with Deltasone and tramadol. First dose of Deltasone was also given in the ED and Tramadol tablets to take home. Note given to excuse her from the workplace until next week Thursday. If still not able to return to work follow-up with personal care physician for further evaluation and management.
[2017-01-29] MEDS ORDERED: Ibuprofen 600 MG Tab PO ONE (19:23)
[2017-01-29] MEDS ORDERED: predniSONE 20 MG Tab PO ONE (19:24)
[2017-01-29] MEDS ORDERED: traMADol 50 MG Tab ONE (19:47)
== END 2017-01-29 19:55 | disposition home or self-care (01) ==
LOC: JD.ED 18:56
DX: S39.012A Strain of muscle, fascia and tendon of lower back, initial encounter (principal); M46.1 Sacroiliitis, not elsewhere classified; Z88.6 Allergy status to analgesic agent; Z88.5 Allergy status to narcotic agent; Z79.899 Other long term (current) drug therapy; X58.XXXA Exposure to other specified factors, initial encounter
CPT/HCPCS: 81001; 99283; A9270

== ENCOUNTER 2017-02-11 18:31 | Emergency (ER) | payer MEDICARE, MEDICAID ==
[2017-02-11 18:38] VITALS: BP 119/77
[2017-02-11] MEDS ORDERED: Benzonatate 100 MG Cap PO ONE (18:55)
--- NOTE | 2017-02-11 19:03 | EDM.PDOC ---
ED HPI GENERAL MEDICAL PROBLEM - General Chief Complaint: Respiratory Problem Stated Complaint: COUGH/CONGESTION Time Seen by Provider: 02/11/17 18:47 Source of Information: Reports: Patient History Limitations: Reports: No Limitations - History of Present Illness INITIAL COMMENTS - FREE TEXT/NARRATIVE: Patient is a 31-year-old female presents ED complaining of sinus congestion, postnasal drip, and nonproductive cough. Onset was 2 days ago has progressively gotten worse. There's been no documented fever. Does have mild sore throat with swallowing and also coughing. Has had poor sleep secondary to cough. Denies any recent sick exposures, body aches, ear pain, nausea vomiting, chest pain, shortness of breath, abdominal pain, or any additional complaints. Throat Pain Score (Numeric/FACES): 5 - Related Data Allergies Allergy/AdvReac Type Severity Reaction Status Date / Time acetaminophen Allergy Other Verified 02/11/17 18:38 [From Tylenol-Codeine] leuprolide acetate Allergy Hives Verified 02/11/17 18:38 [From Lupron] codeine AdvReac Other Verified 02/11/17 18:38 Home Meds: Home Meds Levothyroxine [Synthroid] 50 mcg PO DAILY 10/16/14 [History] Meloxicam [Meloxicam] 15 mg PO DAILY 09/16/16 [History] Diclofenac Sodium [Voltaren] 50 mg PO TIDMEALS #24 tab.ec 01/29/17 [Rx] predniSONE [Deltasone] 20 mg PO ASDIRECTED #15 tablet 01/29/17 [Rx] traMADol [Ultram] 50 mg PO Q6H #24 tablet 01/29/17 [Rx] traMADol [Ultram] 50 mg PO Q6H #4 tablet 01/29/17 [Rx] Past Medical History HEENT History: Reports: Impaired Vision, Other (See Below) Other HEENT History: blind in left eye Cardiovascular History: Reports: High Cholesterol Respiratory History: Reports: Bronchitis, Recurrent Genitourinary History: Reports: UTI, Recurrent 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 (See Below) Other OB/BYN History: pt doesn't menstrate so she takes prometrium to get rid of the waste in her uterus Musculoskeletal History: Reports: Back Pain, Chronic Neurological History: Reports: Other (See Below) Other Neuro History: neurofibrotosis type 1 Endocrine/Metabolic History: Reports: Hypothyroidism - Infectious Disease History Infectious Disease History: Reports: Chicken Pox - Past Surgical History HEENT Surgical History: Reports: Other (See Below) Other 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 Cardiovascular Surgical History: Reports: None Respiratory Surgical History: Reports: None GI Surgical History: Reports: Appendectomy Endocrine Surgical History: Reports: None Other Neurological Surgeries/Procedures: NeuroFibroMytosis Type 1 Social & Family History - Family History Family Medical History: Noncontributory - Tobacco Use Smoking Status *Q: Never Smoker Second Hand Smoke Exposure: No - Caffeine Use Caffeine Use: Reports: Soda Other Caffeine Use: a few can a day - Alcohol Use Days Per Week of Alcohol Use: 0 - Recreational Drug Use Recreational Drug Use: No - Living Situation & Occupation Living situation: Reports: Single Occupation: Employed ED ROS GENERAL - Review of Systems Review Of Systems: See Below Constitutional: Denies: Fever, Chills, Decreased Appetite HEENT: Reports: Rhinitis, Sinus Problem, Throat Pain. Denies: Ear Pain Respiratory: Reports: Cough. Denies: Shortness of Breath, Wheezing, Pleuritic Chest Pain, Sputum Cardiovascular: Denies: Chest Pain, Dyspnea on Exertion GI/Abdominal: Denies: Nausea, Vomiting Musculoskeletal: Denies: Neck Pain, Muscle Pain Neurological: Denies: Dizziness, Headache ED EXAM, GENERAL - Physical Exam Exam: See Below Exam Limited By: No Limitations General Appearance: Alert, WD/WN, No Apparent Distress Ears: Normal External Exam, Normal Canal, Hearing Grossly Normal, Normal TMs Nose: Nasal Swelling, Nasal Drainage, Clear Rhinorrhea Throat/Mouth: Normal Voice, No Airway Compromise, Other (mild erythema with post nasal gtt) Neck: Normal Inspection, Supple, Non-Tender. No: Lymphadenopathy (L), Lymphadenopathy (R) Respiratory/Chest: No Respiratory Distress, Lungs Clear, Normal Breath Sounds, Chest Non-Tender Cardiovascular: Normal Peripheral Pulses, Regular Rate, Rhythm Peripheral Pulses: 2+: Radial (R) Neurological: Alert, Oriented, CN II-XII Intact, No Motor/Sensory Deficits Psychiatric: Normal Affect, Normal Mood Skin Exam: Warm, Dry, Intact, Normal Color, No Rash Course - Vital Signs Last Recorded V/S: Last Vital Signs Temp 97.4 F 02/11/17 18:36 Pulse 87 02/11/17 18:36 Resp 19 02/11/17 18:36 BP 119/77 02/11/17 18:36 Pulse Ox 99 02/11/17 18:36 - Orders/Labs/Meds Meds: Medications Discontinued Medications Generic Name Dose Route Start Last Admin Trade Name Neymar PRN Reason Stop Dose Admin Benzonatate 200 mg 02/11/17 18:55 02/11/17 19:17 Tessalon Perles PO 02/11/17 18:56 200 mg ONETIME ONE Administration - Re-Assessments/Exams Free Text/Narrative Re-Assessment/Exam: Patient has a viral upper respiratory infection. No diagnostic testing is required. Symptomatically care is appropriate. For cough have ordered Tessalon Perles 200 mg administered here in the ED. Will discharge patient with a prescription for Tessalon Perles thru the [facility]. Departure - Departure Time of Disposition: 18:59 Disposition: Home, Self-Care 01 Condition: Good Clinical Impression: Viral upper respiratory tract infection with cough - Discharge Information Instructions: Upper Respiratory Infection, Adult, [id number] Referrals: Natalee Sweet, TIE CUTTER [Primary Care Provider] - Forms: ED Department Discharge Additional Instructions: As discussed this is a viral illness that will resolve on its own over the next week to 10 days. Treatment is symptomatic care including: Flonase 1-2 sprays each nare every a.m., nasal saline spray 1-2 sprays each nare as needed for nasal congestion, Tylenol and ibuprofen in alternating fashion as needed for pain. Push the fluids. Ensure adequate rest. Eat a balanced diet. Take Tessalon Perles one tab 3 times a day as needed for cough. Follow-up with PCP as needed in the next week if symptoms aren't drastically improving. Return to ED for any new or worsening symptoms. No antibiotics are required at this time.
== END 2017-02-11 19:20 | disposition home or self-care (01) ==
LOC: JD.ED 18:31
DX: J06.9 Acute upper respiratory infection, unspecified (principal); E03.9 Hypothyroidism, unspecified; Z88.5 Allergy status to narcotic agent; Z88.8 Allergy status to other drugs, medicaments and biological substances; Z87.440 Personal history of urinary (tract) infections
CPT/HCPCS: 99283; A9270

== ENCOUNTER 2017-05-09 21:35 | Emergency (ER) | payer MEDICARE, MEDICAID ==
[2017-05-09 21:50] VITALS: BP 103/77
[2017-05-09] MEDS ORDERED: Ketorolac 30 MG/ML SDV IM ONE (23:13)
--- NOTE | 2017-05-10 00:38 | EDM.PDOC ---
ED HPI GENERAL MEDICAL PROBLEM - General Chief Complaint: Upper Extremity Injury/Pain Stated Complaint: RIGHT WRIST PAIN Time Seen by Provider: 05/09/17 22:40 Source of Information: Reports: Patient History Limitations: Reports: No Limitations - History of Present Illness INITIAL COMMENTS - FREE TEXT/NARRATIVE: 31-year-old female presents for evaluation and treatment of right wrist pain with radiation into fingers 2, 3 and 4. Patient reports that she has had pain intermittently for the last 4-5 years. She reports over the last 2-3 weeks the pain has significantly worsened and over the last 1-1-1/2 hours she is unable to move her fingers due to the pain. She reports heaviness into her fingers and she is unable to use them. She reports that her wrist has been erythematous and swollen. Currently there is very minimal swelling and no erythema. She has been using pain medication but continues to have discomfort. She has previously seen a provider for this and was told it was information. Reports numbness and tingling into the hand. Patient is right-handed. No trauma to the right wrist and hand. Location: Reports: Upper Extremity, Right Right Wrist Pain Score (Numeric/FACES): 10 - Related Data Allergies Allergy/AdvReac Type Severity Reaction Status Date / Time acetaminophen Allergy Other Verified 05/09/17 21:49 [From Tylenol-Codeine] leuprolide acetate Allergy Hives Verified 05/09/17 21:49 [From Lupron] codeine AdvReac Other Verified 05/09/17 21:49 Home Meds: Home Meds Levothyroxine [Synthroid] 50 mcg PO DAILY 10/16/14 [History] Meloxicam [Meloxicam] 15 mg PO DAILY 09/16/16 [History] Diclofenac Sodium [Voltaren] 50 mg PO TIDMEALS #24 tab.ec 01/29/17 [Rx] Past Medical History HEENT History: Reports: Impaired Vision, Other (See Below) Other HEENT History: blind in left eye Cardiovascular History: Reports: High Cholesterol Respiratory History: Reports: Bronchitis, Recurrent Genitourinary History: Reports: UTI, Recurrent 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) Other OB/BYN History: pt doesn't menstrate so she takes prometrium to get rid of the waste in her uterus Musculoskeletal History: Reports: Back Pain, Chronic Neurological History: Reports: Other (See Below) Other Neuro History: neurofibrotosis type 1 Endocrine/Metabolic History: Reports: Hypothyroidism - Infectious Disease History Infectious Disease History: Reports: Chicken Pox - Past Surgical History HEENT Surgical History: Reports: Other (See Below) Other 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 Cardiovascular Surgical History: Reports: None Respiratory Surgical History: Reports: None GI Surgical History: Reports: Appendectomy Endocrine Surgical History: Reports: None Other Neurological Surgeries/Procedures: NeuroFibroMytosis Type 1 Social & Family History - Family History Family Medical History: Noncontributory - Tobacco Use Smoking Status *Q: Never Smoker Second Hand Smoke Exposure: No - Caffeine Use Caffeine Use: Reports: Soda Other Caffeine Use: a few can a day - Alcohol Use Days Per Week of Alcohol Use: 0 - Recreational Drug Use Recreational Drug Use: No - Living Situation & Occupation Living situation: Reports: Single Occupation: Employed Review of Systems - Review of Systems Review Of Systems: See Below Musculoskeletal: Reports: Hand Pain (right wrist and hand pain), Other ( swelling to the right wrist and hand) Skin: Reports: Erythema Neurological: Reports: Numbness, Tingling ED EXAM, GENERAL - Physical Exam Exam: See Below Exam Limited By: No Limitations General Appearance: Alert, WD/WN, No Apparent Distress Respiratory/Chest: No Respiratory Distress Cardiovascular: Normal Peripheral Pulses, Regular Rate, Rhythm Peripheral Pulses: 2+: Radial (L), Radial (R) Extremities: Normal Inspection, Normal Capillary Refill, Limited Range of Motion (due to pain), Other (tenderness to palpation to the right distal radius and ulna). No: Joint Swelling, Increased Warmth Neurological: Alert, Oriented, Normal Cognition Psychiatric: Normal Affect, Normal Mood Skin Exam: Warm, Dry, Normal Color. No: Erythema Course - Vital Signs Last Recorded V/S: Last Vital Signs Temp 36.3 C 05/09/17 21:44 Pulse 68 05/09/17 21:44 Resp 13 05/09/17 21:44 BP 103/77 05/09/17 21:44 Pulse Ox 99 05/09/17 21:44 - Orders/Labs/Meds Labs: Laboratory Tests 05/09/17 05/09/17 Range/Units 22:53 23:46 WBC 10.40 H (3.98-10.04) K/mm3 RBC 4.71 (3.98-5.22) M/mm3 Hgb 13.2 (11.2-15.7) gm/L Hct 38.2 (34.1-44.9) % MCV 81.1 (79.4-94.8) fl MCH 28.0 (25.6-32.2) pg MCHC 34.6 (32.2-35.5) g/dl RDW Std Deviation 36.6 (36.4-46.3) fL Plt Count 336 (182-369) K/mm3 MPV 9.0 L (9.4-12.3) fl Neut % (Auto) 55.3 (34.0-71.1) % Lymph % (Auto) 34.3 (19.3-51.7) % [place] % (Auto) 7.7 (4.7-12.5) % Eos % (Auto) 1.6 (0.7-5.8) Baso % (Auto) 0.8 (0.1-1.2) % Neut # (Auto) 5.75 (1.56-6.13) K/mm3 Lymph # (Auto) 3.57 (1.18-3.74) K/mm3 [place] # (Auto) 0.80 H (0.24-0.36) K/mm3 Eos # (Auto) 0.17 (0.04-0.36) K/mm3 Baso # (Auto) 0.08 (0.01-0.08) K/mm3 Sodium 137 (136-145) mEq/L Potassium 3.7 (3.5-5.1) mEq/L Chloride 107 (98-107) mEq/L Carbon Dioxide 20 L (21-32) mEq/L Anion Gap 13.7 (5-15) BUN 20 H (7-18) mg/dL Creatinine 0.6 (0.55-1.02) mg/dL Est Cr Clr Drug Dosing 96.69 mL/min Estimated GFR (MDRD) > 60 (>60) mL/min BUN/Creatinine Ratio 33.3 H (14-18) Glucose 103 (74-106) mg/dL Calcium 8.8 (8.5-10.1) mg/dL Total Bilirubin 0.2 (0.2-1.0) mg/dL AST 29 (15-37) U/L ALT 41 (14-59) U/L Alkaline Phosphatase 104 (46-116) U/L C-Reactive Protein < 0.2 (<1.0) mg/dL Total Protein 6.7 (6.4-8.2) g/dl Albumin 3.5 (3.4-5.0) g/dl Globulin 3.2 gm/dL Albumin/Globulin Ratio 1.1 (1-2) Meds: Medications Discontinued Medications Generic Name Dose Route Start Last Admin Trade Name Neymar PRN Reason Stop Dose Admin Ketorolac Tromethamine 30 mg 05/09/17 23:13 05/09/17 23:27 Toradol IM 05/09/17 23:14 30 mg ONETIME ONE Administration - Radiology Interpretation Free Text/Narrative:: xray of the right wrist shows no acute fractures or dislocations. - Re-Assessments/Exams Free Text/Narrative Re-Assessment/Exam: 05/10/17 00:39 I reviewed the labs and imaging with the patient. Her pain is improved with the Toradol. Patient reports that she knits quite a bit. I believe this is likely carpal tunnel causing her problems. We will get her in a wrist splint and have her follow-up with orthopedics. Recommended Aleve for pain relief. Discharge instructions as documented. Departure - Departure Time of Disposition: 00:40 Disposition: Home, Self-Care 01 Condition: Good Clinical Impression: Carpal tunnel syndrome of right wrist - Discharge Information Instructions: Carpal Tunnel Syndrome, [id number] Referrals: Natalee Sweet ZOOGLER [Primary Care Provider] - Bird Adames MD [Physician] - Forms: ED Department Discharge Additional Instructions: [id number] Aleve for pain relief. wear the splint Recommend using ice to the wrist. Follow-up with orthopedics. Recommend Dr. Adames. Call [phone] to schedule with him. Please return to the ER if your symptoms change or worsen.
--- NOTE | 2017-05-10 12:53 | CR ---
Right wrist: Four views of the right wrist were obtained. Comparison: Previous right wrist exam of 03/26/09. Joint spaces are maintained. No fracture, dislocation or other bony abnormality is seen. Impression: 1. No abnormality is identified on right wrist exam. Diagnostic code #1
== END 2017-05-10 00:50 | disposition home or self-care (01) ==
LOC: JD.ED 21:35
DX: G56.01 Carpal tunnel syndrome, right upper limb (principal); E78.00 Pure hypercholesterolemia, unspecified; Z88.6 Allergy status to analgesic agent; Z88.5 Allergy status to narcotic agent; Z79.899 Other long term (current) drug therapy
CPT/HCPCS: 36415; 73110; 80053; 85025; 86140; 96372; 99284; J1885; 99283

== ENCOUNTER 2017-06-10 21:03 | Emergency (ER) | payer MEDICARE, MEDICAID ==
[2017-06-10 21:07] VITALS: BP 107/69
--- NOTE | 2017-06-10 21:09 | EDM.PDOC ---
ED HPI GENERAL MEDICAL PROBLEM - General Chief Complaint: Upper Extremity Injury/Pain Stated Complaint: [facility] Time Seen by Provider: 06/10/17 21:10 Source of Information: Reports: Patient - History of Present Illness INITIAL COMMENTS - FREE TEXT/NARRATIVE: Patient is here for evaluation of hands swelling to right wrist. She states that it does feel better during the day, gets worse at night. She noticed some numbness and tingling to right hand as well. Patient has had no injury to this hand. Patient does wear wrist length at night. Patient is not currently employed. She spends most of her day either knitting or playing Wii. She does like to squeeze her stress ball a lot as well. Right Hand Pain Score (Numeric/FACES): 10 - Related Data Allergies Allergy/AdvReac Type Severity Reaction Status Date / Time acetaminophen Allergy Other Verified 06/10/17 21:08 [From Tylenol-Codeine] leuprolide acetate Allergy Hives Verified 06/10/17 21:08 [From Lupron] codeine AdvReac Other Verified 06/10/17 21:08 Home Meds: Home Meds Levothyroxine [Synthroid] 50 mcg PO DAILY 10/16/14 [History] Meloxicam [Meloxicam] 15 mg PO DAILY 09/16/16 [History] Cyclobenzaprine [Flexeril] 10 mg PO BEDTIME 06/10/17 [History] Past Medical History HEENT History: Reports: Impaired Vision, Other (See Below) Other HEENT History: blind in left eye Cardiovascular History: Reports: High Cholesterol Respiratory History: Reports: Bronchitis, Recurrent Genitourinary History: Reports: UTI, Recurrent 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 (See Below) Other OB/BYN History: pt doesn't menstrate so she takes prometrium to get rid of the waste in her uterus Musculoskeletal History: Reports: Back Pain, Chronic Neurological History: Reports: Other (See Below) Other Neuro History: neurofibrotosis type 1 Endocrine/Metabolic History: Reports: Hypothyroidism - Infectious Disease History Infectious Disease History: Reports: Chicken Pox - Past Surgical History HEENT Surgical History: Reports: Other (See Below) Other 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 Cardiovascular Surgical History: Reports: None Respiratory Surgical History: Reports: None GI Surgical History: Reports: Appendectomy Endocrine Surgical History: Reports: None Other Neurological Surgeries/Procedures: NeuroFibroMytosis Type 1 Social & Family History - Family History Family Medical History: Noncontributory - Tobacco Use Smoking Status *Q: Never Smoker Second Hand Smoke Exposure: No - Caffeine Use Caffeine Use: Reports: Soda Other Caffeine Use: a few can a day - Alcohol Use Days Per Week of Alcohol Use: 0 - Recreational Drug Use Recreational Drug Use: No - Living Situation & Occupation Living situation: Reports: Single Occupation: Employed Review of Systems - Review of Systems Review Of Systems: See Below Constitutional: Reports: No Symptoms Respiratory: Reports: No Symptoms Cardiovascular: Reports: No Symptoms Musculoskeletal: Reports: Other Skin: Reports: No Symptoms Neurological: Reports: Numbness, Tingling ED EXAM, GENERAL - Physical Exam Exam: See Below Exam Limited By: No Limitations General Appearance: Alert, WD/WN, Anxious Respiratory/Chest: No Respiratory Distress, Lungs Clear, Normal Breath Sounds Cardiovascular: Regular Rate, Rhythm, No Murmur Peripheral Pulses: 2+: Radial (L), Radial (R) Extremities: Normal Inspection, Normal Range of Motion, Other (Right wrist without swelling, ecchymosis or deformity. Mild tenderness to right wrist. Full range of motion with "stiffness" but no pain. Positive Phalen's on the right.) Neurological: Alert, Oriented, No Motor/Sensory Deficits Psychiatric: Anxious Skin Exam: Warm, Dry, Intact Course - Vital Signs Last Recorded V/S: Last Vital Signs Temp 97.8 F 06/10/17 21:04 Pulse 77 06/10/17 21:04 Resp 17 06/10/17 21:04 BP 107/69 06/10/17 21:04 Pulse Ox 99 06/10/17 21:04 - Orders/Labs/Meds Meds: Medications Discontinued Medications Generic Name Dose Route Start Last Admin Trade Name Freq PRN Reason Stop Dose Admin Tramadol HCl 50 mg 06/10/17 21:37 Ultram PO 06/10/17 21:38 ONETIME ONE - Re-Assessments/Exams Free Text/Narrative Re-Assessment/Exam: Patient had normal x-ray of her right wrist approximately one month ago and this demonstrated no abnormality. She has had no injury to her right wrist. Patient's description of her symptoms as well as her significant repetitive motions throughout the day (which include knitting, playing Wii or squeezing her stress ball) certainly fit the diagnosis of carpal tunnel syndrome. Patient will continue with her meloxicam, continue use Tylenol as needed. She' ll wear her wrist splint at night, she may wear this during the day needed. I did advise patient to try and avoid some of those repetitive motions during the day. Patient will follow up with PCP as scheduled, I did give her contact information to also schedule consult with orthopedics for further evaluation and treatment. She was certainly return to the emergency room if any worsening or severe symptoms. 06/10/17 21:39 Departure - Departure Time of Disposition: 21:34 Disposition: Home, Self-Care 01 Condition: Good Clinical Impression: Carpal tunnel syndrome of right wrist - Discharge Information Referrals: PCP,None [Primary Care Provider] - Forms: ED Department Discharge Additional Instructions: Continue to take your meloxicam every day. You may take Tylenol as needed. Where your wrist splint every single night, you can wear this during the day if you're having more pain. You may use ice or heat whichever you feel makes it better. You need to follow up with an orthopedic doctor to discuss further treatment options, the doctors are -Dr Cody [phone] -Dr Heredia [phone] -Dr Adames [phone]
[2017-06-10] MEDS ORDERED: traMADol 50 MG Tab PO ONE (21:37)
== END 2017-06-10 21:54 | disposition home or self-care (01) ==
LOC: JD.ED 21:03
DX: G56.01 Carpal tunnel syndrome, right upper limb (principal); E78.00 Pure hypercholesterolemia, unspecified; E03.9 Hypothyroidism, unspecified; Z88.5 Allergy status to narcotic agent; Z88.8 Allergy status to other drugs, medicaments and biological substances; Z79.899 Other long term (current) drug therapy
CPT/HCPCS: 99284; A9270; 99283

== ENCOUNTER 2017-06-29 16:27 | Emergency (ER) | payer MEDICARE, MEDICAID ==
[2017-06-29 16:38] VITALS: BP 128/81
[2017-06-29] MEDS ORDERED: Sodium Chloride 0.9% 1,000 ML IV ONE (17:27)
[2017-06-29] MEDS ORDERED: Ondansetron 4 MG/2 ML SDV IVPUSH ONE (17:27)
[2017-06-29] MEDS ORDERED: Sodium Chloride 0.9% 10 ML Syringe FLUSH PRN (17:27)
--- NOTE | 2017-06-29 17:38 | EDM.PDOC ---
ED HPI GENERAL MEDICAL PROBLEM - General Chief Complaint: Abdominal Pain Stated Complaint: SOB,CRAMPS,DIARRHEA,NAUSEA Time Seen by Provider: 06/29/17 17:12 Source of Information: Reports: Patient History Limitations: Reports: No Limitations - History of Present Illness INITIAL COMMENTS - FREE TEXT/NARRATIVE: Patient is a 31-year-old female who presents to the ED complaining of lower abdominal pain described as a sharp/crampy type pain that waxes and wanes in intensity. She's been mildly nauseated with no emesis. She's had multiple bowel movements today. Described as being hard. She has issues with constipation. Just prior to admission to the ED she had some small hard stool present. States she has a headache and feels dizzy. Complains of mild sinus congestion and runny nose. States she has other family members that are sick with upper respiratory symptoms as well. She did not receive the flu vaccination. Past medical history includes restless leg syndrome and hypothyroidism. Current medications include Synthroid and also meloxicam. Surgical history appendectomy. Patient is nonsmoker utilize alcohol or recreational drugs. Abdomen Pain Score (Numeric/FACES): 8 - Related Data Allergies Allergy/AdvReac Type Severity Reaction Status Date / Time acetaminophen Allergy Other Verified 06/29/17 16:38 [From Tylenol-Codeine] leuprolide acetate Allergy Hives Verified 06/29/17 16:38 [From Lupron] codeine AdvReac Other Verified 06/29/17 16:38 Home Meds: Home Meds Levothyroxine [Synthroid] 50 mcg PO DAILY 10/16/14 [History] Meloxicam [Meloxicam] 15 mg PO DAILY 09/16/16 [History] Cyclobenzaprine [Flexeril] 10 mg PO BEDTIME 06/10/17 [History] Nitrofurantoin Monohyd/M-Cryst [Macrobid 100 mg Capsule] 100 mg PO BID #10 capsule 06/29/17 [Rx] Past Medical History HEENT History: Reports: Impaired Vision, Other (See Below) Other HEENT History: blind in left eye Cardiovascular History: Reports: High Cholesterol Respiratory History: Reports: Bronchitis, Recurrent Genitourinary History: Reports: UTI, Recurrent 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 (See Below) Other OB/BYN History: pt doesn't menstrate so she takes prometrium to get rid of the waste in her uterus Musculoskeletal History: Reports: Back Pain, Chronic Neurological History: Reports: Other (See Below) Other Neuro History: neurofibrotosis type 1 Endocrine/Metabolic History: Reports: Hypothyroidism - Infectious Disease History Infectious Disease History: Reports: Chicken Pox - Past Surgical History HEENT Surgical History: Reports: Other (See Below) Other 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 Cardiovascular Surgical History: Reports: None Respiratory Surgical History: Reports: None GI Surgical History: Reports: Appendectomy Endocrine Surgical History: Reports: None Other Neurological Surgeries/Procedures: NeuroFibroMytosis Type 1 Social & Family History - Family History Family Medical History: Noncontributory - Tobacco Use Smoking Status *Q: Never Smoker Second Hand Smoke Exposure: No - Caffeine Use Caffeine Use: Reports: Soda Other Caffeine Use: a few can a day - Alcohol Use Days Per Week of Alcohol Use: 0 - Recreational Drug Use Recreational Drug Use: No - Living Situation & Occupation Living situation: Reports: Single Occupation: Employed ED ROS GENERAL - Review of Systems Review Of Systems: See Below Constitutional: Reports: Chills, Malaise, Decreased Appetite. Denies: Fever HEENT: Reports: Rhinitis, Sinus Problem. Denies: Ear Pain, Throat Pain Respiratory: Reports: No Symptoms Cardiovascular: Reports: No Symptoms GI/Abdominal: Reports: Abdominal Pain (lower), Constipation, Decreased Appetite , Nausea. Denies: Black Stool, Diarrhea, Distension, Flatus, Hematemesis, Vomiting : Reports: No Symptoms Musculoskeletal: Reports: Muscle Pain (low back) Neurological: Reports: Dizziness, Headache ED EXAM, GI/ABD - Physical Exam Exam: See Below Exam Limited By: No Limitations General Appearance: Alert, WD/WN, No Apparent Distress Ears: Hearing Grossly Normal Nose: Normal Inspection Throat/Mouth: Normal Inspection, Normal Oropharynx, Normal Voice, No Airway Compromise Head: Atraumatic, Normocephalic Neck: Normal Inspection, Supple, Non-Tender, Full Range of Motion Respiratory/Chest: No Respiratory Distress, Lungs Clear, Normal Breath Sounds, No Accessory Muscle Use, Chest Non-Tender Cardiovascular: Normal Peripheral Pulses, Regular Rate, Rhythm GI/Abdominal Exam: Normal Bowel Sounds, Soft, No Organomegaly, No Distention, Tender (suprapubic region) Back Exam: Normal Inspection. No: CVA Tenderness (L), CVA Tenderness (R) Neurological: Alert, Oriented, CN II-XII Intact, Normal Cognition, No Motor/ Sensory Deficits Psychiatric: Normal Affect, Normal Mood Skin Exam: Warm, Dry, Intact, Normal Color, No Rash Course - Vital Signs Last Recorded V/S: Last Vital Signs Temp 98.2 F 06/29/17 16:33 Pulse 81 06/29/17 16:33 Resp 13 06/29/17 16:33 BP 128/81 06/29/17 16:33 Pulse Ox 100 06/29/17 16:33 Orthostatic Blood Pressure [ 109/72 Standing] Orthostatic Blood Pressure [ 115/72 Sitting] Orthostatic Blood Pressure [ 121/71 Supine] - Orders/Labs/Meds Orders: Active Orders 24 hr Category Date Time Status Orthostatic Vital Signs [RC] ASDIRECTED Care 06/29/17 17:36 Active Peripheral IV Care [RC] . DIRECTED Care 06/29/17 17:27 Active Abdomen 2V AP Flat Upright [CR] Stat Exams 06/29/17 17:26 Taken Peripheral IV Insertion Adult [OM.PC] Routine Oth 06/29/17 17:27 Ordered Labs: Laboratory Tests 06/29/17 06/29/17 06/29/17 Range/Units 16:45 16:45 16:45 WBC 8.20 (3.98-10.04) K/mm3 RBC 4.93 (3.98-5.22) M/mm3 Hgb 13.6 (11.2-15.7) gm/L Hct 39.7 (34.1-44.9) % MCV 80.5 (79.4-94.8) fl MCH 27.6 (25.6-32.2) pg MCHC 34.3 (32.2-35.5) g/dl RDW Std Deviation 35.5 L (36.4-46.3) fL Plt Count 348 (182-369) K/mm3 MPV 9.1 L (9.4-12.3) fl Neut % (Auto) 55.8 (34.0-71.1) % Lymph % (Auto) 31.5 (19.3-51.7) % [place] % (Auto) 8.0 (4.7-12.5) % Eos % (Auto) 3.3 (0.7-5.8) Baso % (Auto) 0.9 (0.1-1.2) % Neut # (Auto) 4.58 (1.56-6.13) K/mm3 Lymph # (Auto) 2.58 (1.18-3.74) K/mm3 [place] # (Auto) 0.66 H (0.24-0.36) K/mm3 Eos # (Auto) 0.27 (0.04-0.36) K/mm3 Baso # (Auto) 0.07 (0.01-0.08) K/mm3 Sodium 134 L (136-145) mEq/L Potassium 3.8 (3.5-5.1) mEq/L Chloride 103 (98-107) mEq/L Carbon Dioxide 20 L (21-32) mEq/L Anion Gap 14.8 (5-15) BUN 24 H (7-18) mg/dL Creatinine 0.8 (0.55-1.02) mg/dL Est Cr Clr Drug Dosing 72.52 mL/min Estimated GFR (MDRD) > 60 (>60) mL/min BUN/Creatinine Ratio 30.0 H (14-18) Glucose 120 H (74-106) mg/dL Calcium 8.8 (8.5-10.1) mg/dL Total Bilirubin 0.2 (0.2-1.0) mg/dL AST 23 (15-37) U/L ALT 28 (14-59) U/L Alkaline Phosphatase 115 (46-116) U/L C-Reactive Protein < 0.2 (<1.0) mg/dL Total Protein 6.9 (6.4-8.2) g/dl Albumin 3.5 (3.4-5.0) g/dl Globulin 3.4 gm/dL Albumin/Globulin Ratio 1.0 (1-2) TSH 3rd Generation (0.358-3.74) uIU/mL HCG, Qual Negative (NEGATIVE) Urine Color (Yellow) Urine Appearance (Clear) Urine pH (5.0-8.0) Ur Specific [place] (1.005-1.030) Urine Protein (Negative) Urine Glucose (UA) (Negative) Urine Ketones (Negative) Urine Occult Blood (Negative) Urine Nitrite (Negative) Urine Bilirubin (Negative) Urine Urobilinogen (0.2-1.0) Ur Leukocyte Esterase (Negative) Urine RBC (0-5) /hpf Urine WBC (0-5) /hpf Ur Epithelial Cells (0-5) /hpf Urine Bacteria (FEW) /hpf Urine Mucus (FEW) /hpf 06/29/17 06/29/17 Range/Units 16:45 17:45 WBC (3.98-10.04) K/mm3 RBC (3.98-5.22) M/mm3 Hgb (11.2-15.7) gm/L Hct (34.1-44.9) % MCV (79.4-94.8) fl MCH (25.6-32.2) pg MCHC (32.2-35.5) g/dl RDW Std Deviation (36.4-46.3) fL Plt Count (182-369) K/mm3 MPV (9.4-12.3) fl Neut % (Auto) (34.0-71.1) % Lymph % (Auto) (19.3-51.7) % [place] % (Auto) (4.7-12.5) % Eos % (Auto) (0.7-5.8) Baso % (Auto) (0.1-1.2) % Neut # (Auto) (1.56-6.13) K/mm3 Lymph # (Auto) (1.18-3.74) K/mm3 [place] # (Auto) (0.24-0.36) K/mm3 Eos # (Auto) (0.04-0.36) K/mm3 Baso # (Auto) (0.01-0.08) K/mm3 Sodium (136-145) mEq/L Potassium (3.5-5.1) mEq/L Chloride (98-107) mEq/L Carbon Dioxide (21-32) mEq/L Anion Gap (5-15) BUN (7-18) mg/dL Creatinine (0.55-1.02) mg/dL Est Cr Clr Drug Dosing mL/min Estimated GFR (MDRD) (>60) mL/min BUN/Creatinine Ratio (14-18) Glucose (74-106) mg/dL Calcium (8.5-10.1) mg/dL Total Bilirubin (0.2-1.0) mg/dL AST (15-37) U/L ALT (14-59) U/L Alkaline Phosphatase (46-116) U/L C-Reactive Protein (<1.0) mg/dL Total Protein (6.4-8.2) g/dl Albumin (3.4-5.0) g/dl Globulin gm/dL Albumin/Globulin Ratio (1-2) TSH 3rd Generation 0.882 (0.358-3.74) uIU/mL HCG, Qual (NEGATIVE) Urine Color Yellow (Yellow) Urine Appearance Clear (Clear) Urine pH 6.0 (5.0-8.0) Ur Specific [place] 1.015 (1.005-1.030) Urine Protein Negative (Negative) Urine Glucose (UA) Negative (Negative) Urine Ketones Negative (Negative) Urine Occult Blood Trace-lysed H (Negative) Urine Nitrite Negative (Negative) Urine Bilirubin Negative (Negative) Urine Urobilinogen 0.2 (0.2-1.0) Ur Leukocyte Esterase 1+ H (Negative) Urine RBC 0-5 (0-5) /hpf Urine WBC 5-10 H (0-5) /hpf Ur Epithelial Cells 0-5 (0-5) /hpf Urine Bacteria Few (FEW) /hpf Urine Mucus Few (FEW) /hpf Meds: Medications Discontinued Medications Generic Name Dose Route Start Last Admin Trade Name Freq PRN Reason Stop Dose Admin Sodium Chloride 1,000 mls @ 999 mls/hr 06/29/17 17:27 06/29/17 17:44 Normal Saline IV 06/29/17 18:27 999 mls/hr ONETIME ONE Administration Nitrofurantoin Macrocrystals 100 mg 06/29/17 18:28 06/29/17 18:54 Macrobid PO 06/29/17 18:29 100 mg ONETIME ONE Administration Ondansetron HCl 4 mg 06/29/17 17:27 06/29/17 17:44 Zofran IVPUSH 06/29/17 17:28 4 mg ONETIME ONE Administration Sodium Chloride 10 ml 06/29/17 17:27 06/29/17 17:44 Saline Flush FLUSH 10 ml ASDIRECTED PRN Administration Keep Vein Open - Re-Assessments/Exams Free Text/Narrative Re-Assessment/Exam: IV established with normal saline 999 MLS per hour, and Zofran 4 mg IVP. Initial labs and studies will include CBC, chem 14, hCG, UA, CRP, and 2 view of the abdomen flat and upright. UA: occult blood trace, leukocyte esterace 1+, and WBC 5-10. CBC was essentially normal. Chemistry panel revealed sodium 134, potassium 3.8, AG 13.8, albumin 24, creatinine 0.8, glucose 120, CRP less than 0.2, TSH 0.82, hCG negative. Abdomen x-ray reviewed: No acute findings noted. Patient has a UTI. Ordered Macrobid 100mg PO. No urine culture will be obtained. Patient does not have a history of recurrent UTIs and is not sexually active. Departure - Departure Time of Disposition: 18:34 Disposition: Home, Self-Care 01 Condition: Good Clinical Impression: UTI (urinary tract infection) Qualifiers: Urinary tract infection type: acute cystitis Hematuria presence: without hematuria Qualified Code(s): N30.00 - Acute cystitis without hematuria - Discharge Information Prescriptions: Nitrofurantoin Monohyd/M-Cryst [Macrobid 100 mg Capsule] 100 mg PO BID #10 capsule Instructions: Urinary Tract Infection, Adult, [id number] Referrals: Natalee Sweet MANAGEMENT CONSULTANT [Primary Care Provider] - Forms: ED Department Discharge Additional Instructions: You have a UTI. Take Macrobid 100 mg twice a day for the next 5 days. Push the fluids. May utilize Tylenol and ibuprofen in alternating fashion for pain. Follow-up with your primary care provider in one week for reevaluation to ensure resolution of symptoms. Return to the ED if you develop any new or worsening symptoms. - My Orders Last 24 Hours: My Active Orders 06/29/17 17:26 Abdomen 2V AP Flat Upright [CR] Stat 06/29/17 17:27 Peripheral IV Care [RC] . DIRECTED Peripheral IV Insertion Adult [OM.PC] Routine 06/29/17 17:36 Orthostatic Vital Signs [RC] ASDIRECTED - Assessment/Plan Last 24 Hours: My Active Orders 06/29/17 17:26 Abdomen 2V AP Flat Upright [CR] Stat 06/29/17 17:27 Peripheral IV Care [RC] . DIRECTED Peripheral IV Insertion Adult [OM.PC] Routine 06/29/17 17:36 Orthostatic Vital Signs [RC] ASDIRECTED
[2017-06-29] MEDS ORDERED: Nitrofurantoin Monohydrate/Macrocrystalline 100 MG Cap PO ONE (18:28)
--- NOTE | 2017-06-30 07:05 | CR ---
Abdomen: Supine and upright views of the abdomen were obtained. Comparison: No prior abdominal x-ray, previous abdominal and pelvic CT exam of 05/15/16. Bowel gas pattern appears normal. Mild scoliosis is seen. No abnormal calcifications or soft tissue abnormality is seen. No free air is seen. Impression: 1. Mild scoliosis. Two-view abdominal x-ray is otherwise unremarkable. Diagnostic code #2
== END 2017-06-29 18:55 | disposition home or self-care (01) ==
LOC: JD.ED 16:27
DX: N30.00 Acute cystitis without hematuria (principal); E78.00 Pure hypercholesterolemia, unspecified; E03.9 Hypothyroidism, unspecified; Z90.49 Acquired absence of other specified parts of digestive tract; Z79.899 Other long term (current) drug therapy; Z88.5 Allergy status to narcotic agent; Z88.6 Allergy status to analgesic agent; Z88.8 Allergy status to other drugs, medicaments and biological substances
CPT/HCPCS: 36415; 74019; 80053; 81001; 84443; 84703; 85025; 86140; 96361; 96374; 99284; A9270; J2405; J7040; J7050

== ENCOUNTER 2017-11-12 22:45 | Emergency (ER) | payer MEDICARE, MEDICAID ==
[2017-11-12 22:56] VITALS: BP 128/114
--- NOTE | 2017-11-13 02:05 | EDM.PDOC ---
ED HPI GENERAL MEDICAL PROBLEM - General Chief Complaint: Respiratory Problem Stated Complaint: COUGHING/LIGHT HEADED Time Seen by Provider: 11/13/17 01:35 Source of Information: Reports: Patient History Limitations: Reports: No Limitations - History of Present Illness INITIAL COMMENTS - FREE TEXT/NARRATIVE: The patient states that she has had a dry cough since 11/08/2017. Tonight , around 22:30, she became lightheaded and vomited when she was coughing, then her central chest hurt after she vomited. She states that she has had similar symptoms, when she had bronchitis. For her cough, the patient has taken Mucinex DM, which has not helped, and one dose of DayQuil, this past 11/10/2017, which also did not help. The patient states that she saw her PCP, Cathleen Sweet, on Thursday, 2017. She states that no tests were performed, and that she was told that she has a common cold. She states that she was advised to "give it a week". Chest Pain Score (Numeric/FACES): 10 - Related Data Allergies Allergy/AdvReac Type Severity Reaction Status Date / Time acetaminophen Allergy Other Verified 11/12/17 22:56 [From Tylenol-Codeine] leuprolide acetate Allergy Hives Verified 11/12/17 22:56 [From Lupron] codeine AdvReac Other Verified 11/12/17 22:56 Home Meds: Home Meds Levothyroxine [Synthroid] 50 mcg PO DAILY 10/16/14 [History] Meloxicam 15 mg PO DAILY 09/16/16 [History] Cyclobenzaprine [Flexeril] 10 mg PO BEDTIME 06/10/17 [History] atorvaSTATin [Lipitor] 10 mg PO BEDTIME 11/12/17 [History] Past Medical History HEENT History: Reports: Impaired 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) Cardiovascular History: Reports: High Cholesterol Musculoskeletal History: Reports: Back Pain, Chronic Neurological History: Reports: Other (See Below) (Neurofibromatosis type I) Endocrine/Metabolic History: Reports: Hypothyroidism, Other (See Below) (Left acoustic nerve fibroma, treated with RTx) - Infectious Disease History Infectious Disease History: Reports: Chicken Pox - Past Surgical History HEENT Surgical History: Reports: Oral Surgery ([place] teeth extraction) GI Surgical History: Reports: Appendectomy Other Neurological Surgeries/Procedures: NeuroFibroMytosis Type 1 Social & Family History - Family History Family Medical History: Noncontributory - Tobacco Use Smoking Status *Q: Never Smoker Second Hand Smoke Exposure: No - Caffeine Use Caffeine Use: Reports: None Other Caffeine Use: a few can a day - Alcohol Use Alcohol Use History: Yes Alcohol Use Frequency: Socially - Recreational Drug Use Recreational Drug Use: No - Living Situation & Occupation Living situation: Reports: Single, Alone Occupation: Employed ED ROS GENERAL - Review of Systems Review Of Systems: ROS reveals no pertinent complaints other than HPI. ED EXAM, GENERAL - Physical Exam Exam: See Below Exam Limited By: No Limitations General Appearance: Alert, WD/WN, No Apparent Distress, Other (Skeletal dysplasia c/w dwarfism) Eye Exam: Bilateral Eye: Normal Inspection Ears: Normal External Exam, Normal Canal, Hearing Grossly Normal, Normal TMs Nose: Normal Inspection, No Blood, Other (Mild bilateral nasal mucosa edema) Throat/Mouth: Normal Inspection, Normal Lips, Normal Teeth, Normal Gums, Normal Oropharynx, Normal Voice, No Airway Compromise Head: Atraumatic, Normocephalic Neck: Normal Inspection, Supple, Non-Tender, Full Range of Motion. No: Lymphadenopathy (L), Lymphadenopathy (R) Respiratory/Chest: No Respiratory Distress, Lungs Clear, Normal Breath Sounds, No Accessory Muscle Use. No: Crackles, Rhonchi, Wheezing Cardiovascular: Normal Peripheral Pulses, Regular Rate, Rhythm, No Edema, No Gallop, No JVD, No Murmur, No Rub Peripheral Pulses: 4+: Radial (L), Radial (R) GI/Abdominal: Normal Bowel Sounds, Soft, Non-Tender, No Organomegaly, No Distention, No Abnormal Bruit, No Mass (Female) Exam: Deferred Rectal (Female) Exam: Deferred Back Exam: Normal Inspection, Full Range of Motion, NT Extremities: Normal Inspection, Normal Range of Motion, No Pedal Edema, Normal Capillary Refill Neurological: Alert, Oriented, Normal Cognition, No Motor/Sensory Deficits Psychiatric: Normal Affect Skin Exam: Warm, Dry, Intact, Normal Color, No Rash Course - Vital Signs Last Recorded V/S: Last Vital Signs Temp 36.4 C 11/12/17 22:50 Pulse 93 11/12/17 22:50 Resp 18 11/12/17 22:50 BP 128/114 H 11/12/17 22:50 Pulse Ox 100 11/12/17 22:50 - Re-Assessments/Exams Free Text/Narrative Re-Assessment/Exam: 11/13/17 02:01 2-view chest radiograph appears to be grossly normal. Cardiac silhouette is within normal limits. No pulmonary vascular congestion. No pleural effusions. No focal infiltrate. No pneumothorax. Formal read per the radiologist pending. The above was discussed the patient. I agree with Cathleen Sweet - the patient has a viral URI. I could prescribe a codeine with promethazine cough syrup, however, the patient tells me that she is allergic to codeine, and, unfortunately, [id number] cough and cold remedies have not been shown to be of benefit. The patient will simply have to ride this cold out. Departure - Departure Time of Disposition: 02:03 Disposition: Home, Self-Care 01 Condition: Good Clinical Impression: Viral URI with cough - Discharge Information *PRESCRIPTION DRUG MONITORING PROGRAM REVIEWED*: Not Applicable *COPY OF PRESCRIPTION DRUG MONITORING REPORT IN PATIENT OBED: Not Applicable Instructions: Upper Respiratory Infection, Adult, [id number] Referrals: Natalee Sweet, [employer] [Primary Care Provider] - Forms: ED Department Discharge Additional Instructions: You were seen in the emergency room for a cough since 11/08/2017, associated with vomiting and lightheadedness tonight. Workup in the ER included a chest x-ray, which was completely normal. You do not have pneumonia or bronchitis. Based on your history and physical examination, you are suffering from a viral URI, also known as a common cold. Unfortunate, there are no medicines to treat a viral URI - it will have to run its course. We do not recommend that you take any [id number] cough and cold remedies, as they have been shown to be of no benefit, but do have side effects. Follow-up with your PCP, Cathleen Sweet, as needed. If any other problems, please do not hesitate to return to the ER.
--- NOTE | 2017-11-13 08:08 | CR ---
Chest: Two views of the chest are obtained. Comparison: Prior chest x-ray of 12/01/13. Heart size and mediastinum are normal. On the lateral view there is a focal density being seen anteriorly with what is believed to be the right middle lobe. Lungs otherwise are clear. Scoliosis present within the spine which is stable. Impression: 1. Focal density within the right middle lobe on the lateral view probably within the right middle lobe. Difficult to exclude small area of pneumonia. 2. Nothing acute is otherwise seen. Diagnostic code #3
== END 2017-11-13 02:11 | disposition home or self-care (01) ==
LOC: JD.ED 22:45
DX: J06.9 Acute upper respiratory infection, unspecified (principal); Z88.8 Allergy status to other drugs, medicaments and biological substances; Z88.5 Allergy status to narcotic agent; Z79.899 Other long term (current) drug therapy
CPT/HCPCS: 71046; 71046-26; 99283

== ENCOUNTER 2018-07-04 13:24 | Emergency (ER) | payer MEDICARE, MEDICAID ==
[2018-07-04 13:32] VITALS: BP 115/85
[2018-07-04] MEDS ORDERED: HYDROmorphone 1 MG/ML Syringe IVPUSH ONE (13:41)
[2018-07-04] MEDS ORDERED: Ondansetron 4 MG/2 ML SDV IVPUSH ONE (13:41)
[2018-07-04] MEDS ORDERED: Albuterol/Ipratropium 3.0-0.5 MG/3 ML Neb Soln NEB ONE (13:44)
[2018-07-04] MEDS ORDERED: Dextrose 5%-0.9% NaCl 1,000 ML IV SCH (13:45)
[2018-07-04] MEDS ORDERED: Ketorolac 30 MG/ML SDV IVPUSH SCH (13:45)
--- NOTE | 2018-07-04 13:45 | EDM.PDOC ---
ED HPI GENERAL MEDICAL PROBLEM - General Chief Complaint: Abdominal Pain Stated Complaint: HEADACHE,CHEST AND STOMACH HURT Time Seen by Provider: 07/04/18 13:39 Source of Information: Reports: Patient History Limitations: Reports: No Limitations - History of Present Illness INITIAL COMMENTS - FREE TEXT/NARRATIVE: 32-year-old female presents the ED for evaluation of acute onset of illness about 1730 hrs. last night. She developed a generalized severe headache which she describes as somewhat migrainous-like associated runny nose and sinus congestion. She has a pressure in her central chest without much but cough. He complains of generalized myalgia and diffuse lower abdominal pain. Denies any genitourinary complaints. His not have normal periods. Previous appendectomy. He is running a low-grade fever at 37.3 at this time. Has no appetite. And only a few sherita grahm crackers today. Onset: Sudden Onset Date: 07/03/18 Onset Time: 19:30 Duration: Hour(s): Location: Reports: Head, Chest (Throbbing headache), Abdomen ( chest pressure discomfort without much coughfused lower abdominal pain with decreased appetite. ), Generalized (Generalized myalgia.) Severity: Moderate Improves with: Reports: None Worsens with: Reports: None Context: Reports: Other (Spontaneous occurrence of symptoms). Denies: Activity , Exercise, Lifting, Sick Contact, Trauma Associated Symptoms: Reports: Chest Pain, Fever/Chills, Headaches, Loss of Appetite, Malaise (Chest heaviness without wheezing), Shortness of Breath, Weakness ( sats are 99% on room air). Denies: Confusion, Cough, cough w sputum , Diaphoresis, Nausea/Vomiting (Does have a low-grade fever no bad chills), Rash , Seizure, Syncope (Sense of shortness of breath) Treatments [employer]ING [employer]: Reports: Other (see below) (None.) Generalized Pain Score (Numeric/FACES): 10 - Related Data Allergies Allergy/AdvReac Type Severity Reaction Status Date / Time acetaminophen Allergy Other Verified 11/12/17 22:56 [From Tylenol-Codeine] leuprolide acetate Allergy Hives Verified 11/12/17 22:56 [From Lupron] codeine AdvReac Other Verified 11/12/17 22:56 Home Meds: Home Meds Levothyroxine [Synthroid] 50 mcg PO DAILY 10/16/14 [History] Meloxicam 15 mg PO DAILY 09/16/16 [History] Cyclobenzaprine [Flexeril] 10 mg PO BEDTIME 06/10/17 [History] atorvaSTATin [Lipitor] 10 mg PO BEDTIME 11/12/17 [History] Past Medical History HEENT History: Reports: Impaired Vision Other HEENT History: blind in left eye Cardiovascular History: Reports: High Cholesterol Respiratory History: Reports: Bronchitis, Recurrent Genitourinary History: Reports: UTI, Recurrent 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 (See Below) Other DISTRIBUTION LINEMAN History: pt doesn't menstrate so she takes prometrium to get rid of the waste in her uterus Musculoskeletal History: Reports: Back Pain, Chronic Neurological History: Reports: Other (See Below) Other Neuro History: neurofibrotosis type 1 Endocrine/Metabolic History: Reports: Hypothyroidism, Other (See Below) - Infectious Disease History Infectious Disease History: Reports: Chicken Pox - Past Surgical History HEENT Surgical History: Reports: Oral Surgery Respiratory Surgical History: Reports: None GI Surgical History: Reports: Appendectomy Other Neurological Surgeries/Procedures: NeuroFibroMytosis Type 1 Social & Family History - Family History Family Medical History: Noncontributory - Tobacco Use Smoking Status *Q: Never Smoker - Caffeine Use Caffeine Use: Reports: None Other Caffeine Use: a few can a day - Recreational Drug Use Recreational Drug Use: No - Living Situation & Occupation Living situation: Reports: Single, Alone Occupation: Employed ED ROS GENERAL - Review of Systems Review Of Systems: See Below Constitutional: Reports: Fever, Malaise, Weakness, Fatigue, Decreased Appetite. Denies: Chills HEENT: Reports: Glasses Respiratory: Reports: Shortness of Breath. Denies: Wheezing, Pleuritic Chest Pain, Cough, Sputum, Hemoptysis Cardiovascular: Reports: Chest Pain (Chest heaviness). Denies: Blood Pressure Problem, Claudication, Dyspnea on Exertion, Edema, Lightheadedness, Orthopnea Endocrine: Reports: Fatigue GI/Abdominal: Reports: Abdominal Pain (Diffuse lower abdominal pain), Decreased Appetite (Crampy and colicky.) : Reports: No Symptoms Musculoskeletal: Reports: Other (Has chronic joint pain knees back and feet) Skin: Reports: No Symptoms Neurological: Reports: Headache Psychiatric: Reports: Anxiety Hematologic/Lymphatic: Reports: No Symptoms Immunologic: Reports: No Symptoms ED EXAM, GI/ABD - Physical Exam Exam: See Below Exam Limited By: No Limitations General Appearance: Alert, WD/WN, Anxious, Mild Distress, Other (Low-grade fever 37.6. O2 sats 99% on room air) Eyes: Bilateral: Normal Appearance Ears: Normal TMs Throat/Mouth: Normal Inspection, Normal Lips, Normal Oropharynx Head: Atraumatic, Normocephalic Neck: Normal Inspection, Supple, Non-Tender, Full Range of Motion. No: Lymphadenopathy (L), Lymphadenopathy (R) Respiratory/Chest: No Respiratory Distress, Lungs Clear, Normal Breath Sounds, No Accessory Muscle Use Cardiovascular: Normal Peripheral Pulses, Regular Rate, Rhythm, No Edema, No Gallop, No Murmur, No Rub GI/Abdominal Exam: Soft, No Organomegaly, No Abnormal Bruit, No Mass, Pelvis Stable, Tender (Mildly tender suprapubically.), Abnormal Bowel Sounds ( Hyperactive bowel sounds in all 4 quadrants), Other (Has had previous appendectomy) Back Exam: Normal Inspection, Full Range of Motion. No: CVA Tenderness (L), CVA Tenderness (R) Extremities: Other (Has clubfoot deformities of both feet. Previous surgery on her right foot with removal of tumor. It was benign) Neurological: Alert, Oriented, CN II-XII Intact, Normal Cognition Psychiatric: Anxious Skin Exam: Warm, Dry, Intact, Normal Color, No Rash Course - Vital Signs Last Recorded V/S: Last Vital Signs Temp 37.6 C 07/04/18 13:29 Pulse 90 07/04/18 13:29 Resp 18 07/04/18 13:29 BP 115/85 07/04/18 13:29 Pulse Ox 99 07/04/18 13:44 - Orders/Labs/Meds Orders: Active Orders 24 hr Category Date Time Status RT Aerosol Therapy [RC] ASDIRECTED Care 07/04/18 13:44 Active Abdomen 1V Flat [CR] Stat Exams 07/04/18 13:42 Taken Chest 1V Frontal [CR] Stat Exams 07/04/18 13:50 Taken Dextrose 5%-0.9% NaCl [Dextrose 5%-Normal Saline] 1,000 Med 07/04/18 13:45 Active ml IV ASDIRECTED Ketorolac [Toradol] Med 07/04/18 13:45 Active 30 mg IVPUSH ONETIME Medication Orders Dextrose/Sodium Chloride (Dextrose 5%-Normal Saline) 1,000 mls @ 500 mls/hr IV ASDIRECTED YULI Last Admin: 07/04/18 14:09 Dose: 500 mls/hr Ketorolac Tromethamine (Toradol) 30 mg IVPUSH ONETIME COUNT INCLUDES THE [facility] Last Admin: 07/04/18 14:16 Dose: 30 mg Labs: Laboratory Tests 07/04/18 07/04/18 Range/Units 14:07 14:07 WBC 9.44 (3.98-10.04) K/mm3 RBC 5.26 H (3.98-5.22) M/mm3 Hgb 14.2 (11.2-15.7) gm/L Hct 41.9 (34.1-44.9) % MCV 79.7 (79.4-94.8) fl MCH 27.0 (25.6-32.2) pg MCHC 33.9 (32.2-35.5) g/dl RDW Std Deviation 35.2 L (36.4-46.3) fL Plt Count 322 (182-369) K/mm3 MPV 8.8 L (9.4-12.3) fl Neutrophils % (Manual) 81 H (40-60) % Band Neutrophils % 0 (0-10) % Lymphocytes % (Manual) 18 L (20-40) % Atypical Lymphs % 0 % Monocytes % (Manual) 1 L (2-10) % Eosinophils % (Manual) 0 L (0.7-5.8) % Basophils % (Manual) 0 L (0.1-1.2) Platelet Estimate Adequate Plt Morphology Comment Normal RBC Morph Comment Normal Sodium 135 L (136-145) mEq/L Potassium 3.6 (3.5-5.1) mEq/L Chloride 103 (98-107) mEq/L Carbon Dioxide 21 (21-32) mEq/L Anion Gap 14.6 (5-15) BUN 11 (7-18) mg/dL Creatinine 0.8 (0.55-1.02) mg/dL Est Cr Clr Drug Dosing 71.84 mL/min Estimated GFR (MDRD) > 60 (>60) mL/min BUN/Creatinine Ratio 13.8 L (14-18) Glucose 96 (74-106) mg/dL Calcium 8.4 L (8.5-10.1) mg/dL Total Bilirubin 0.5 (0.2-1.0) mg/dL AST 18 (15-37) U/L ALT 23 (14-59) U/L Alkaline Phosphatase 114 (46-116) U/L C-Reactive Protein 1.1 H* (<1.0) mg/dL Total Protein 7.4 (6.4-8.2) g/dl Albumin 3.9 (3.4-5.0) g/dl Globulin 3.5 gm/dL Albumin/Globulin Ratio 1.1 (1-2) Lipase 70 L (73-393) U/L Meds: Medications Generic Name Dose Route Start Last Admin Trade Name Freq PRN Reason Stop Dose Admin Dextrose/Sodium Chloride 1,000 mls @ 500 mls/hr 07/04/18 13:45 07/04/18 14:09 Dextrose 5%-Normal Saline IV 500 mls/hr ASDIRECTED YULI Administration Ketorolac Tromethamine 30 mg 07/04/18 13:45 07/04/18 14:16 Toradol IVPUSH 30 mg ONETIME YULI Administration Discontinued Medications Generic Name Dose Route Start Last Admin Trade Name Freq PRN Reason Stop Dose Admin Albuterol/Ipratropium 3 ml 07/04/18 13:44 07/04/18 14:02 Duoneb 3.0-0.5 Mg/3 Ml NEB 07/04/18 13:45 3 ml ONETIME ONE Administration Hydromorphone HCl 0.5 mg 07/04/18 13:41 07/04/18 14:15 Dilaudid IVPUSH 07/04/18 13:42 0.5 mg ONETIME ONE Administration Magnesium Citrate 210 ml 07/04/18 16:10 07/04/18 16:20 Citrate Of Magnesia PO 07/04/18 16:11 210 ml ONETIME ONE Administration Ondansetron HCl 4 mg 07/04/18 13:41 07/04/18 14:10 Zofran IVPUSH 07/04/18 13:42 4 mg ONETIME ONE Administration Ondansetron HCl Confirm 07/04/18 13:47 07/04/18 13:53 Zofran Administered 07/04/18 13:48 Not Given Dose 4 mg .ROUTE .RUST-MED ONE - Radiology Interpretation Free Text/Narrative:: 32-year-old female presents to the ED with acute onset of multiple symptoms starting about 1930 hrs. yesterday. She states she developed a generalized severe headaches which she describes as migrainous-like. She does have a bit of a runny nose. No sore throat. She has a pressure heaviness in her chest but no defined cough or sputum production. She has generalized myalgia. She has loss of appetite. His diffuse lower abdominal crampy pain and on examination has very active bowel sounds in all 4 quadrants. Does have a low-grade fever of 37.6 . Plan IV will be D5 normal saline at 500 mils per hour. We'll give her Toradol 30 mg IV for body ache and headache relief. Also 0.5 mg of Dilaudid with Zofran 4 mg. T labs to be collected without blood cultures at this time. One view chest x-ray one view of the abdomen to be done and a urinalysis. Influenza screen to be done - Re-Assessments/Exams Free Text/Narrative Re-Assessment/Exam: 07/04/18 14:05 KUB reveals increased stool throughout most of the colon particular the transverse colon and all of the descending colon compatible with constipation. There are no signs of bowel obstruction. Chest x-rays within normal limits. 07/04/18 15:50 Labs reveal a normal white count at 9.44 with 81% neutrophils and no band cells reported. Hemoglobin is 14.2 with hematocrit of 41.9. MCV is slightly low at 79.7. Platelet count is 322,000. Sodium slightly low at 135 with a potassium of 3.6. Chloride 103 with a bicarbonate of 21. Anion gap is normal at 14.6. BUN is 11 with a creatinine of 0.8. GFR remains greater than 60. Glucose is currently 96. Calcium is 8.4. Liver function is normal C- reactive protein is 1.1 serum lipase is 70. Influenza screen came back negative. Patient will therefore be discharged to home. We'll place her on magnesium citrate or Citroma 7 ounces by mouth mixed with 6 ounces of juice of choice taken orally once to provide bowel cleanse. It appears that she is likely coming down with a viral upper respiratory tract infection negative for influenza screen at this time. She will therefore continue Motrin 600 mg every 6 hours needed for pain relief and/or fever relief. Follow-up in clinic if not markedly improved in 48 hours time Departure - Departure Time of Disposition: 16:09 Disposition: Home, Self-Care 01 Condition: Fair Clinical Impression: Viral upper respiratory tract infection, Constipation by delayed colonic transit Abdominal pain Qualifiers: Abdominal location: lower abdomen, unspecified Qualified Code(s): R10.30 - Lower abdominal pain, unspecified - Discharge Information *PRESCRIPTION DRUG MONITORING PROGRAM REVIEWED*: Not Applicable *COPY OF PRESCRIPTION DRUG MONITORING REPORT IN PATIENT OBED: Not Applicable Instructions: Abdominal Pain, Adult, Constipation, Adult, [id number] Referrals: PCP,None [Ordering Only Provider] - Forms: ED Department Discharge Additional Instructions: Evaluation the emergency room today in regards to low-grade fever associated with a headache and runny nose. Central chest pressure without any significant cough. Diffuse lower abdominal pain with increased bowel sounds throughout on examination. Chest x-ray did not show any signs of infection or pneumonia. Influenza screen came back negative. White blood cell count is within the normal range with no signs of active infection. Will to pass her water while you were in the ED and therefore urinalysis was never completed. The x-ray of the abdomen did show increased stool throughout the transverse colon across her upper mid abdomen and throughout the left descending colon into the pelvis. Therefore constipation is the cause of your abdominal pain. You're treated in the ED for pain relief with Toradol and a small dose of Dilaudid and Zofran for nausea relief. I suspect she will need Motrin 600 mg every 6 hours as needed for fever relief. It appears you're coming down with a upper respiratory tract infection likely going to develop into a cough cold in the next few days. If headache is bad and body ache worsens in the next 36 hours then influenza screen could be repeated as sometimes it is false-negative within the first 24 hours of illness. Treatment of the abdominal pain is magnesium citrate 7 ounces mixed with 5-6 ounces of juice of choice when you get home. This usually starts to work in 1-2 hours and will make her bowels move 3-4 times often ending in a bit of diarrhea. This should relieve your abdominal pain completely however. Lopressor personal care provider if any further problem's occur in the next few days. - My Orders Last 24 Hours: My Active Orders 07/04/18 13:42 Abdomen 1V Flat [CR] Stat 07/04/18 13:44 RT Aerosol Therapy [RC] ASDIRECTED 07/04/18 13:45 Dextrose 5%-0.9% NaCl [Dextrose 5%-Normal Saline] 1,000 ml IV ASDIRECTED Ketorolac [Toradol] 30 mg IVPUSH ONETIME 07/04/18 13:50 Chest 1V Frontal [CR] Stat - Assessment/Plan Last 24 Hours: My Active Orders 07/04/18 13:42 Abdomen 1V Flat [CR] Stat 07/04/18 13:44 RT Aerosol Therapy [RC] ASDIRECTED 07/04/18 13:45 Dextrose 5%-0.9% NaCl [Dextrose 5%-Normal Saline] 1,000 ml IV ASDIRECTED Ketorolac [Toradol] 30 mg IVPUSH ONETIME 07/04/18 13:50 Chest 1V Frontal [CR] Stat
[2018-07-04] MEDS ORDERED: Ondansetron 4 MG/2 ML SDV ONE (13:47)
[2018-07-04] MEDS ORDERED: Magnesium Citrate Solution 296 ML Bottle PO ONE (16:10)
--- NOTE | 2018-07-04 17:13 | CR ---
Chest: Portable view of the chest was obtained. Comparison: Prior chest x-ray of 11/12/17. Heart size and mediastinum are normal. Lungs show no acute parenchymal change. Bony structures are grossly intact. Impression: 1. Nothing acute is appreciated on portable chest x-ray. Diagnostic code #1
--- NOTE | 2018-07-04 17:13 | CR ---
Abdomen: Supine view of the abdomen was obtained. Comparison: Prior abdominal plain film study of 06/29/17. Slight increased stool within the transverse and left colon is seen. Bowel gas pattern is otherwise unremarkable. Bony structures show minimal scoliosis within the spine. No abnormal calcifications or discrete soft tissue abnormality is seen. Impression: 1. Slight increased stool within the colon. Other incidental finding. Diagnostic code #2
== END 2018-07-04 16:35 | disposition home or self-care (01) ==
LOC: JD.ED 13:24
DX: J06.9 Acute upper respiratory infection, unspecified (principal); K59.01 Slow transit constipation; E78.00 Pure hypercholesterolemia, unspecified; E03.9 Hypothyroidism, unspecified; Z88.8 Allergy status to other drugs, medicaments and biological substances; Z79.899 Other long term (current) drug therapy
CPT/HCPCS: 36415; 71045; 74018; 80053; 83690; 85007; 85027; 86140; 87804; 94640; 96361; 96374; 96375; 99284; A9270; J1170; J1885; J2405; J7042; J7620-GY

== ENCOUNTER 2018-09-05 19:37 | Emergency (ER) | payer MEDICARE, MEDICAID ==
[2018-09-05 19:49] VITALS: BP 117/67
[2018-09-05] MEDS ORDERED: Sodium Chloride 0.9% 10 ML Syringe FLUSH PRN (20:11)
[2018-09-05] MEDS ORDERED: Ondansetron 4 MG/2 ML SDV IVPUSH ONE (20:11)
[2018-09-05] MEDS ORDERED: Famotidine 20 MG Tab PO ONE (20:11)
[2018-09-05] MEDS ORDERED: Sodium Chloride 0.9% 1,000 ML IV SCH (20:15)
--- NOTE | 2018-09-05 20:18 | EDM.PDOC ---
ED HPI GENERAL MEDICAL PROBLEM - General Chief Complaint: Respiratory Problem Stated Complaint: RECENT SURGERY SOB BACK PAIN Time Seen by Provider: 09/05/18 20:01 Source of Information: Reports: Patient, RN Notes Reviewed - History of Present Illness INITIAL COMMENTS - FREE TEXT/NARRATIVE: 33 year old female with onset of nausea, vomiting, diarrhea, abd pain this evening about 2 to 3 hours ago. She continues to have nausea, mid abd pain without radiation. No fever or chills. Hx of prior appendectomy. Had a "lympth node" or some type of lesion removed R lower back 3 days ago. Lower Back Pain Score (Numeric/FACES): 10 - Related Data Allergies Allergy/AdvReac Type Severity Reaction Status Date / Time acetaminophen Allergy Other Verified 11/12/17 22:56 [From Tylenol-Codeine] leuprolide acetate Allergy Hives Verified 11/12/17 22:56 [From Lupron] codeine AdvReac Other Verified 11/12/17 22:56 Home Meds: Home Meds Levothyroxine [Synthroid] 50 mcg PO DAILY 10/16/14 [History] Ondansetron [Zofran ODT] 4 mg PO Q8HR PRN #6 tab.dis 09/05/18 [Rx] Past Medical History HEENT History: Reports: Impaired Vision Other HEENT History: blind in left eye Cardiovascular History: Reports: High Cholesterol Respiratory History: Reports: Bronchitis, Recurrent Genitourinary History: Reports: UTI, Recurrent 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: 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 (See Below) 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 DIRECTOR COUNSELING [employer] History: pt doesn't menstrate so she takes prometrium to get rid of the waste in her uterus Musculoskeletal History: Reports: Back Pain, Chronic Neurological History: Reports: Other (See Below) Other Neuro History: neurofibrotosis type 1 Endocrine/Metabolic History: Reports: Hypothyroidism, Other (See Below) - Infectious Disease History Infectious Disease History: Reports: Chicken Pox - Past Surgical History HEENT Surgical History: Reports: Oral Surgery Respiratory Surgical History: Reports: None GI Surgical History: Reports: Appendectomy Other Neurological Surgeries/Procedures: NeuroFibroMytosis Type 1 Social & Family History - Family History Family Medical History: Noncontributory - Tobacco Use Smoking Status *Q: Never Smoker - Caffeine Use Caffeine Use: Reports: None Other Caffeine Use: a few can a day - Recreational Drug Use Recreational Drug Use: No - Living Situation & Occupation Living situation: Reports: Single, Alone Occupation: Employed ED ROS GENERAL - Review of Systems Review Of Systems: See Below Constitutional: Denies: Fever, Chills, Diaphoresis HEENT: Denies: Throat Pain Respiratory: Denies: Shortness of Breath Cardiovascular: Reports: Chest Pain (mild discomfort lower ant chest) GI/Abdominal: Reports: Abdominal Pain, Diarrhea (frequent watery), Nausea, Vomiting : Reports: No Symptoms Musculoskeletal: Denies: Back Pain Skin: Reports: No Symptoms Neurological: Reports: Dizziness (mild) ED EXAM, GENERAL - Physical Exam Exam: See Below General Appearance: Alert, No Apparent Distress Eye Exam: Bilateral Eye: PERRL Throat/Mouth: Normal Inspection Head: Atraumatic Neck: Supple Respiratory/Chest: No Respiratory Distress, Lungs Clear, Normal Breath Sounds Cardiovascular: Regular Rate, Rhythm GI/Abdominal: Soft, Tender (mild mid abd tenderness). No: Guarding, Rebound Back Exam: Other (small area of swelling R low back, area of apparent excision, very mild localized erythema, no drainage). No: CVA Tenderness (R) Extremities: Normal Inspection Neurological: Alert, Oriented, No Motor/Sensory Deficits Skin Exam: Warm, Dry, Normal Color Course - Vital Signs Last Recorded V/S: Last Vital Signs Temp 97.7 F 09/05/18 19:46 Pulse 65 09/05/18 19:46 Resp 18 09/05/18 19:46 BP 117/67 09/05/18 19:46 Pulse Ox 100 09/05/18 19:46 - Orders/Labs/Meds Orders: Active Orders 24 hr Category Date Time Status Peripheral IV Care [RC] . DIRECTED Care 09/05/18 20:12 Active Sodium Chloride 0.9% [Normal Saline] 1,000 ml Med 09/05/18 20:15 Active IV ONETIME Sodium Chloride 0.9% [Saline Flush] Med 09/05/18 20:11 Active 10 ml FLUSH ASDIRECTED PRN Peripheral IV Insertion Adult [OM.PC] Stat Oth 09/05/18 20:11 Ordered Medication Orders Sodium Chloride (Normal Saline) 1,000 mls @ 999 mls/hr IV ONETIME YULI Last Admin: 09/05/18 20:47 Dose: 999 mls/hr Sodium Chloride (Saline Flush) 10 ml FLUSH ASDIRECTED PRN PRN Reason: Keep Vein Open Last Admin: 09/05/18 20:39 Dose: 10 ml Labs: Laboratory Tests 09/05/18 09/05/18 Range/Units 20:30 20:30 WBC 11.42 H (3.98-10.04) K/mm3 RBC 5.40 H (3.98-5.22) M/mm3 Hgb 14.8 (11.2-15.7) gm/L Hct 43.7 (34.1-44.9) % MCV 80.9 (79.4-94.8) fl MCH 27.4 (25.6-32.2) pg MCHC 33.9 (32.2-35.5) g/dl RDW Std Deviation 38.5 (36.4-46.3) fL Plt Count 340 (182-369) K/mm3 MPV 9.4 (9.4-12.3) fl Neut % (Auto) 63.3 (34.0-71.1) % Lymph % (Auto) 25.0 (19.3-51.7) % [place] % (Auto) 8.6 (4.7-12.5) % Eos % (Auto) 1.7 (0.7-5.8) Baso % (Auto) 0.7 (0.1-1.2) % Neut # (Auto) 7.23 H (1.56-6.13) K/mm3 Lymph # (Auto) 2.86 (1.18-3.74) K/mm3 [place] # (Auto) 0.98 H (0.24-0.36) K/mm3 Eos # (Auto) 0.19 (0.04-0.36) K/mm3 Baso # (Auto) 0.08 (0.01-0.08) K/mm3 Sodium 140 (136-145) mEq/L Potassium 3.4 L (3.5-5.1) mEq/L Chloride 105 (98-107) mEq/L Carbon Dioxide 23 (21-32) mEq/L Anion Gap 15.4 H (5-15) BUN 14 (7-18) mg/dL Creatinine 0.7 (0.55-1.02) mg/dL Est Cr Clr Drug Dosing 81.34 mL/min Estimated GFR (MDRD) > 60 (>60) mL/min BUN/Creatinine Ratio 20.0 H (14-18) Glucose 100 (74-106) mg/dL Calcium 9.4 (8.5-10.1) mg/dL Total Bilirubin 0.3 (0.2-1.0) mg/dL AST 20 (15-37) U/L ALT 23 (14-59) U/L Alkaline Phosphatase 103 (46-116) U/L Total Protein 7.6 (6.4-8.2) g/dl Albumin 4.2 (3.4-5.0) g/dl Globulin 3.4 gm/dL Albumin/Globulin Ratio 1.2 (1-2) Meds: Medications Generic Name Dose Route Start Last Admin Trade Name Freq PRN Reason Stop Dose Admin Sodium Chloride 1,000 mls @ 999 mls/hr 09/05/18 20:15 09/05/18 20:47 Normal Saline IV 999 mls/hr ONETIME YULI Administration Sodium Chloride 10 ml 09/05/18 20:11 09/05/18 20:39 Saline Flush FLUSH 10 ml ASDIRECTED PRN Administration Keep Vein Open Discontinued Medications Generic Name Dose Route Start Last Admin Trade Name Freq PRN Reason Stop Dose Admin Famotidine 20 mg 09/05/18 20:11 09/05/18 20:38 Pepcid PO 09/05/18 20:12 20 mg ONETIME ONE Administration Ondansetron HCl 4 mg 09/05/18 20:11 09/05/18 20:38 Zofran IVPUSH 09/05/18 20:12 4 mg ONETIME ONE Administration Departure - Departure Time of Disposition: 22:00 Disposition: Home, Self-Care 01 Condition: Fair Clinical Impression: Vomiting Qualifiers: Vomiting type: unspecified Vomiting Intractability: non-intractable Nausea presence: with nausea Qualified Code(s): R11.2 - Nausea with vomiting, unspecified Diarrhea Qualifiers: Diarrhea type: unspecified type Qualified Code(s): R19.7 - Diarrhea, unspecified - Discharge Information Prescriptions: Ondansetron [Zofran ODT] 4 mg PO Q8HR PRN #6 tab.dis PRN Reason: Nausea/Vomiting Referrals: Eron Gongora MD [Primary Care Provider] - Forms: ED Department Discharge Additional Instructions: clear liquids only until tomorrow afternoon, than very careful bland diet as tolerated, zofran q 6 to 8 hr if needed for any further severe nausea or vomtiing, follow up clinic if not back to normal within 1 to 2 days as expected. Return to ED if symptoms worsening in any way. - My Orders Last 24 Hours: My Active Orders 09/05/18 20:11 Sodium Chloride 0.9% [Saline Flush] 10 ml FLUSH ASDIRECTED PRN Peripheral IV Insertion Adult [OM.PC] Stat 09/05/18 20:12 Peripheral IV Care [RC] . DIRECTED 09/05/18 20:15 Sodium Chloride 0.9% [Normal Saline] 1,000 ml IV ONETIME - Assessment/Plan Last 24 Hours: My Active Orders 09/05/18 20:11 Sodium Chloride 0.9% [Saline Flush] 10 ml FLUSH ASDIRECTED PRN Peripheral IV Insertion Adult [OM.PC] Stat 09/05/18 20:12 Peripheral IV Care [RC] . DIRECTED 09/05/18 20:15 Sodium Chloride 0.9% [Normal Saline] 1,000 ml IV ONETIME
== END 2018-09-05 22:25 | disposition home or self-care (01) ==
LOC: JD.ED 19:37
DX: R11.2 Nausea with vomiting, unspecified (principal); R19.7 Diarrhea, unspecified; E78.00 Pure hypercholesterolemia, unspecified; Z88.8 Allergy status to other drugs, medicaments and biological substances; Z88.5 Allergy status to narcotic agent; Z79.899 Other long term (current) drug therapy
CPT/HCPCS: 36415; 80053; 85025; 96361; 96374; 99283; A9270; J2405; J7040; 99284

== ENCOUNTER 2018-10-21 19:10 | Emergency (ER) | payer MEDICARE, MEDICAID ==
[2018-10-21 19:22] VITALS: BP 121/64
--- NOTE | 2018-10-21 20:48 | EDM.PDOC ---
ED HPI GENERAL MEDICAL PROBLEM - General Chief Complaint: Respiratory Problem Stated Complaint: [facility] Time Seen by Provider: 10/21/18 20:48 - History of Present Illness INITIAL COMMENTS - FREE TEXT/NARRATIVE: 33-year-old female presents emergency room with chest pain. This pain started around 6:00 this evening. The patient had surgery 2 months ago presented lymph node removed from her back. 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 She describes the chest pain is bandlike mostly in the back of her back chest lower margin. She's not associated diaphoresis nausea vomiting some shortness of breath. 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, IV/IO Upper Chest Pain Score (Numeric/FACES): 5 - Related Data Allergies Allergy/AdvReac Type Severity Reaction Status Date / Time acetaminophen Allergy Other Verified 10/21/18 19:22 [From Tylenol-Codeine] leuprolide acetate Allergy Hives Verified 10/21/18 19:22 [From Lupron] codeine AdvReac Other Verified 10/21/18 19:22 Home Meds: Home Meds Levothyroxine [Synthroid] 50 mcg PO DAILY 10/16/14 [History] Past Medical History HEENT History: Reports: Impaired Vision Other HEENT History: blind in left eye Cardiovascular History: Reports: High Cholesterol Respiratory History: Reports: Bronchitis, Recurrent Genitourinary History: Reports: UTI, Recurrent 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 (See Below) Other 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 History: pt doesn't menstrate so she takes prometrium to get rid of the waste in her uterus Musculoskeletal History: Reports: Back Pain, Chronic Neurological History: Reports: Other (See Below) Other Neuro History: neurofibrotosis type 1 Endocrine/Metabolic History: Reports: Hypothyroidism, Other (See Below) - Infectious Disease History Infectious Disease History: Reports: Chicken Pox - Past Surgical History HEENT Surgical History: Reports: Oral Surgery Respiratory Surgical History: Reports: None GI Surgical History: Reports: Appendectomy Other Neurological Surgeries/Procedures: NeuroFibroMytosis Type 1 Social & Family History - Family History Family Medical History: Noncontributory - Tobacco Use Smoking Status *Q: Never Smoker - Caffeine Use Caffeine Use: Reports: Soda Other Caffeine Use: a few can a day - Recreational Drug Use Recreational Drug Use: No - Living Situation & Occupation Living situation: Reports: Single, Alone Occupation: Employed ED ROS GENERAL - Review of Systems Review Of Systems: See Below Constitutional: Reports: No Symptoms HEENT: Reports: No Symptoms Respiratory: Reports: Pleuritic Chest Pain Cardiovascular: Reports: Chest Pain Endocrine: Reports: No Symptoms GI/Abdominal: Reports: No Symptoms. Denies: Abdominal Pain, Anorexia, Black Stool, Bloody Stool : Reports: No Symptoms Musculoskeletal: Reports: No Symptoms Skin: Reports: No Symptoms Neurological: Reports: No Symptoms Psychiatric: Reports: No Symptoms ED EXAM, GENERAL - Physical Exam Exam: See Below Exam Limited By: No Limitations General Appearance: Alert, No Apparent Distress Nose: Normal Inspection Throat/Mouth: Normal Inspection Head: Atraumatic Neck: Normal Inspection, Lymphadenopathy (R) Respiratory/Chest: No Respiratory Distress, Lungs Clear, Normal Breath Sounds, No Accessory Muscle Use GI/Abdominal: Normal Bowel Sounds, Soft, Non-Tender Back Exam: Normal Inspection. No: CVA Tenderness (L), CVA Tenderness (R) Neurological: Other (Some edema in the right lower leg) Course - Vital Signs Last Recorded V/S: Last Vital Signs Temp 36.7 C 10/21/18 19:15 Pulse 70 10/21/18 19:15 Resp 16 10/21/18 19:15 BP 121/64 10/21/18 19:15 Pulse Ox 98 10/21/18 19:15 - Orders/Labs/Meds Orders: Active Orders 24 hr Category Date Time Status EKG Documentation Completion [RC] STAT Care 10/21/18 21:04 Active RT Post Treatment Assessment [RC] Click to Edit Care 10/21/18 23:04 Active RT Pre-Treatment Assessment [RC] Click to Edit Care 10/21/18 23:04 Active Chest 1V Frontal [CR] Stat Exams 10/21/18 21:04 Taken Labs: Laboratory Tests 10/21/18 10/21/18 10/21/18 Range/Units 21:20 21:20 21:20 WBC 8.14 (3.98-10.04) K/mm3 RBC 4.99 (3.98-5.22) M/mm3 Hgb 13.7 (11.2-15.7) gm/L Hct 39.9 (34.1-44.9) % MCV 80.0 (79.4-94.8) fl MCH 27.5 (25.6-32.2) pg MCHC 34.3 (32.2-35.5) g/dl RDW Std Deviation 36.0 L (36.4-46.3) fL Plt Count 293 (182-369) K/mm3 MPV 9.3 L (9.4-12.3) fl Neutrophils % (Manual) 68 H (40-60) % Band Neutrophils % 0 (0-10) % Lymphocytes % (Manual) 24 (20-40) % Atypical Lymphs % 0 % Monocytes % (Manual) 5 (2-10) % Eosinophils % (Manual) 1 (0.7-5.8) % Basophils % (Manual) 2 H (0.1-1.2) Platelet Estimate Adequate Plt Morphology Comment Normal RBC Morph Comment Normal PT 12.0 (9.5-12.1) SECONDS INR 1.10 APTT 33 H (24-31) SECONDS D-Dimer, Quantitative 0.20 (0.19-0.50) mg/L Sodium 139 (136-145) mEq/L Potassium 3.4 L (3.5-5.1) mEq/L Chloride 106 (98-107) mEq/L Carbon Dioxide 20 L (21-32) mEq/L Anion Gap 16.4 H (5-15) BUN 12 (7-18) mg/dL Creatinine 0.6 (0.55-1.02) mg/dL Est Cr Clr Drug Dosing 94.90 mL/min Estimated GFR (MDRD) > 60 (>60) mL/min BUN/Creatinine Ratio 20.0 H (14-18) Glucose 104 (74-106) mg/dL Calcium 9.0 (8.5-10.1) mg/dL Total Bilirubin 0.4 (0.2-1.0) mg/dL AST 13 L (15-37) U/L ALT 17 (14-59) U/L Alkaline Phosphatase 105 (46-116) U/L Troponin I < 0.017 (0.00-0.056) ng/mL Total Protein 6.8 (6.4-8.2) g/dl Albumin 3.9 (3.4-5.0) g/dl Globulin 2.9 gm/dL Albumin/Globulin Ratio 1.3 (1-2) Meds: Medications Discontinued Medications Generic Name Dose Route Start Last Admin Trade Name Freq PRN Reason Stop Dose Admin Albuterol 8 gm 10/21/18 23:03 Proventil Hfa INH 10/21/18 23:04 ONETIME ONE - Re-Assessments/Exams Free Text/Narrative Re-Assessment/Exam: 10/21/18 23:05 Return evaluation is unrevealing chest x-ray appears normal d-dimer is negative. Discussed the findings with this with the patient patient is a very strong family history of reactive airway disease I am not sure if this is contributing to what she isn't is experiencing but we did discuss trying a albuterol inhaler and she would like to give this a try. Departure - Departure Time of Disposition: 23:06 Disposition: Home, Self-Care 01 Clinical Impression: Difficulty breathing - Discharge Information Referrals: Eron Gongora MD [Primary Care Provider] - Forms: ED Department Discharge Additional Instructions: Return to the emergency room with any questions problems worsening symptoms. Try the albuterol inhaler 2 puffs every 4 hours while awake as needed. Follow-up with regular doctor in one week - My Orders Last 24 Hours: My Active Orders 10/21/18 21:04 EKG Documentation Completion [RC] STAT Chest 1V Frontal [CR] Stat 10/21/18 23:04 RT Post Treatment Assessment [RC] Click to Edit RT Pre-Treatment Assessment [RC] Click to Edit - Assessment/Plan Last 24 Hours: My Active Orders 10/21/18 21:04 EKG Documentation Completion [RC] STAT Chest 1V Frontal [CR] Stat 10/21/18 23:04 RT Post Treatment Assessment [RC] Click to Edit RT Pre-Treatment Assessment [RC] Click to Edit
[2018-10-21] MEDS ORDERED: Albuterol 6.7 GM Inhaler INH ONE ×2 (23:03→23:17)
--- NOTE | 2018-10-22 09:00 | CR ---
Chest: Portable view of the chest was obtained. Comparison: Prior chest x-ray of 07/04/18. Heart size and mediastinum are normal. Lungs are clear. Scoliosis is noted within the spine. Bony structures show nothing acute. Impression: 1. Nothing acute is appreciated on portable chest x-ray. Diagnostic code #2
== END 2018-10-21 23:27 | disposition home or self-care (01) ==
LOC: JD.ED 19:10
DX: R06.00 Dyspnea, unspecified (principal); E78.00 Pure hypercholesterolemia, unspecified; Z88.5 Allergy status to narcotic agent; Z88.8 Allergy status to other drugs, medicaments and biological substances; Z79.899 Other long term (current) drug therapy
CPT/HCPCS: 36415; 71045; 80053; 84484; 85007; 85027; 85379; 85610; 85730; 93005; 94640; 99285; A9270; 93010; 99284

== ENCOUNTER 2023-02-03 09:34 | Emergency (ER) | payer MEDICARE, MEDICAID ==
[2023-02-03] MEDS ORDERED: Ondansetron 4 MG Tab.DIS PO ONE (11:11)
[2023-02-03 11:20] VITALS: BP 122/81; PULSE 74
== END 2023-02-03 11:21 | disposition home or self-care (01) ==
LOC: JD.ED 09:34
DX: R11.0 Nausea (principal); R10.30 Lower abdominal pain, unspecified; E03.9 Hypothyroidism, unspecified; Z79.899 Other long term (current) drug therapy; Z88.6 Allergy status to analgesic agent; Z88.5 Allergy status to narcotic agent
CPT/HCPCS: 99283; A9270; 99282

== ENCOUNTER 2024-09-02 13:00 | Emergency (ER) | payer MEDICARE, MEDICAID ==
[2024-09-02 14:15] LABS: BASOPHILS ABSOLUTE AUTO 0.1 K/mm3 (0.0-0.2); BASOPHILS PERCENT AUTO 1.3 % (0.0-1.0); EOSINOPHILS PERCENT AUTO 0.6 % (0.0-6.0); HEMATOCRIT 41.5 % (37.0-47.0); HEMOGLOBIN 13.8 gm/dl (12.0-16.0); IMMATURE GRAN ABSOLUTE AUTO 0.04 K/mm3 (0.00-0.05); IMMATURE GRAN PERCENT AUTO 0.6 % (0.0-0.4); LYMPHOCYTES ABSOLUTE AUTO 1.2 K/mm3 (1.0-4.8); LYMPHOCYTES PERCENT AUTO 17.9 % (24.0-44.0); MEAN CORPUSCULAR HEMOGLOBIN 27.7 pg (28.0-32.0); MEAN CORPUSCULAR HGB CONC 33.3 g/dl (32.0-36.0); MEAN CORPUSCULAR VOLUME 83.2 fl (83.0-99.0); MEAN PLATELET VOLUME 8.4 fl (9.4-12.3); MONOCYTES ABSOLUTE AUTO 0.4 K/mm3 (0.0-0.8); MONOCYTES PERCENT AUTO 5.1 % (0.0-8.0); NEUTROPHILS ABSOLUTE AUTO 5.1 K/mm3 (1.8-7.7); NEUTROPHILS PERCENT AUTO 74.5 % (41.0-71.0); PLATELET COUNT,PLT 318 K/mm3 (150-400); RED BLOOD CELL COUNT 4.99 M/mm3 (4.10-5.30); WHITE BLOOD CELL COUNT,WBC 6.86 K/mm3 (3.9-11.3)
[2024-09-02 14:51] LABS: A/G RATIO 1.1 (1-2); ALANINE AMINOTRANSFERASE,ALT 23 U/L (14-59); ALBUMIN 3.8 g/dl (3.4-5.0); ALKALINE PHOSPHATASE 128 U/L (46-116); ANION GAP 16.7 (5-15); ASPARTATE AMNIOTRANSFERASE,AST 20 U/L (15-37); BILIRUBIN TOTAL 0.6 mg/dL (0.2-1.0); BLOOD UREA NITROGEN,BUN 11 mg/dL (7-18); BUN/CREATININE RATIO 13.8 (14-18); C-REACTIVE PROTEIN 0.59 mg/dL (<0.30); CARBON DIOXIDE,CO2 20 mEq/L (21-32); CHLORIDE,CL 100 mEq/L (98-107); CREATININE 0.8 mg/dL (0.55-1.02); EST CRCL DRUG DOSING (CG) 67.14 mL/min; ESTIMATED GFR 95 mL/min (>60); GLUCOSE RANDOM 92 mg/dL (70-99); POTASSIUM,K 3.7 mEq/L (3.5-5.1); PROTEIN TOTAL,TP 7.3 g/dl (6.4-8.2); SODIUM,NA 133 mEq/L (136-145)
[2024-09-02 15:02] LABS: TROPONIN I HIGH SENSITIVITY < 4 pg/mL (<=51)
[2024-09-02 16:23] VITALS: BP 128/85; PULSE 80
== END 2024-09-02 16:23 | disposition home or self-care (01) ==
LOC: JD.ED 13:00
DX: J01.90 Acute sinusitis, unspecified (principal); E78.00 Pure hypercholesterolemia, unspecified; Z79.899 Other long term (current) drug therapy; Z79.890 Hormone replacement therapy; Z88.5 Allergy status to narcotic agent; Z88.8 Allergy status to other drugs, medicaments and biological substances
CPT/HCPCS: 36415; 71046; 71046-26; 80053; 84484; 85025; 86140; 93005; 93010; 99284; 99285